=== PATIENT | female | born 1935 | race Caucasian/White ===

== ENCOUNTER 2021-08-22 13:27 | Inpatient (IN) | payer OTHER, MEDICAID, SELFPAY ==
[~2021-08-22] VITALS: Ht 165.1 cm; Wt 68.7 kg
[~2021-08-22 13:27] MED LIST: ACET650S53 PO; HYDR-4004 PO; LACT1.4C PO; OXYC40TA PO; POTA10TA74 PO; SIMV40TA1 PO; SULF-58 PO; VALS80TA2 PO; [UNRECOGNIZED DRUG - CODE] PO
[2021-08-22 13:38] VITALS: BP 186/91
[2021-08-22] MEDS ORDERED: METOCLOPRAMIDE 10 MG/2 ML INJ VIAL IVP ONE (14:55)
[2021-08-22] MEDS ORDERED: ONDANSETRON 4 MG ODT PO ONE (15:05)
--- NOTE | 2021-08-22 15:12 | NUR ---
COVID RAPID SWAB DONE.
[2021-08-22 16:01] LABS: EOSINOPHILS # (AUTO) 0.4 K/uL (0-0.4); EOSINOPHILS % (AUTO) 3.4 % (0.0-4.0); HEMATOCRIT 44.1 % (36-48); HEMOGLOBIN 14.7 g/dL (12.0-16.0); LYMPHOCYTES # (AUTO) 1.2 K/uL (2.5-16.5); LYMPHOCYTES % (AUTO) 9.4 % (20.5-51.1); MEAN CORPUSCULAR HEMOGLOBIN 30 pg (27-31); MEAN CORPUSCULAR HGB CONC 33 g/dL (33-37); MEAN CORPUSCULAR VOLUME 90.2 fL (80-94); MONOCYTES # (AUTO) 2.3 K/uL (0.8-1.0); MONOCYTES % (AUTO) 18.3 % (1.7-9.3); NEUTROPHILS # (AUTO) 8.5 K/uL (1.8-7.7); NEUTROPHILS % (AUTO) 68.9 % (42.2-75.2); PLATELET COUNT (AUTO) 322 K/uL (140-450); RED BLOOD CELL COUNT(AUTO) 4.89 MIL/uL (4.20-5.40); RED CELL DISTRIBUTION WIDTH 13.9 % (11.6-13.7); WHITE BLOOD COUNT (AUTO) 12.4 K/uL (4.8-10.8)
[2021-08-22 16:50] LABS: ANION GAP 10.3 (8-16); CARBON DIOXIDE 36.3 mmol/L (21-32); CHLORIDE 99 mmol/L (98-107); CREATININE 1.2 mg/dL (0.6-1.3); GLUCOSE 154 mg/dL (74-106); POTASSIUM 3.6 mmol/L (3.5-5.1); SODIUM SERUM 142 mmol/L (136-145); UREA NITROGEN, BLOOD 38 mg/dL (7-18)
[2021-08-22 16:56] LABS: BILIRUBIN,DIRECT 0.1 mg/dL (0.0-0.3); TOTAL BILIRUBIN 0.5 mg/dL (0.0-1.0)
[2021-08-22] MEDS ORDERED: NACL 0.9% 500 ML IV ONE (17:05)
--- NOTE | 2021-08-22 19:45 | NUR ---
RECEIVED IN BED 6 WITH C/O ABDOMINAL PAIN X 1 WEEK. [facility]. BETTING AGENCY COUNTER CLERK AT BEDSIDE WHO SAYS PT HAS BEEN VOMITING. PMH : SCHIZOPHRENIA NKDA
--- NOTE | 2021-08-22 21:00 | NUR ---
PT PULLED IV OUT. 20G ESTABLISHED RIGHT FOOT
[2021-08-22] MEDS ORDERED: ONDANSETRON 4 MG ODT ONE (21:06)
[2021-08-22] MEDS ORDERED: DEXT 5% / NACL 0.9% 500 ML IV ONE (21:25)
[2021-08-22] MEDS ORDERED: MORPHINE SULFATE 2 MG/ML SYR IVP PRN (22:15)
[2021-08-22] MEDS ORDERED: LORazepam 2 MG/ML VIAL IVP PRN (22:15)
[2021-08-22] MEDS: MORPHINE SULFATE 2 MG/ML SYR IVP PRN (23:34)
--- NOTE | 2021-08-23 00:40 | NUR ---
NGT INSERTED LEFT NARE. AUSCULTATION (+)
--- NOTE | 2021-08-23 01:24 | NUR ---
X-RAY AT BEDSIDE
--- NOTE | 2021-08-23 04:00 | NUR ---
NGT CONTINUES TO DRAIN LARGEAMOUNT BROWN COLORED DRAINAGE
--- NOTE | 2021-08-23 06:00 | NUR ---
RESTING QUIETLY. WARM BLANKETS GIVEN
--- NOTE | 2021-08-23 07:22 | NUR ---
MED REC UNOBTAINABLE AT THIS TIME. NO RECORD WITH PT WHO IS UNABLE TO GIVE INFORMATION AT THIS TIME
--- NOTE | 2021-08-23 08:30 | NUR ---
RECEIVED REPORT FROM CADY BOUDREAUX, ASSUMED CARE AT THIS TIME.
--- NOTE | 2021-08-23 08:35 | NUR ---
HOSPICE NURSE PRACTITIONER NURSE ENDORSED TO DAY NURSE PATIENT HAS PULLED OUT NG TUBE MULTIPLE TIMES. NG TUBE NOT IN PLACE WHEN I ASSUMED CARE OF PATIENT, PATIENT REFUSING TO ALLOW US TO REPLACE TUBE. ADMIT DOCTOR MADE AWARE.
--- NOTE | 2021-08-23 10:04 | NUR ---
PATIENT RESTING WITH EYES CLOSED, ON BEDSIDE EDGER HAND, WILL CONTINUE TO MONITOR.
[2021-08-23] MEDS ORDERED: ALBUTEROL 0.083% 2.5 MG/3 ML NEBU INH PRN (11:05)
[2021-08-23] MEDS ORDERED: ONDANSETRON 4 MG/2 ML VIAL IVP PRN (11:05)
--- NOTE | 2021-08-23 12:00 | NUR ---
DC PLANNING PATIENT IS AN 85-YEAR OLD FEMALE ADMITTED IN THE [facility]/ED ON 08/22/2021 DUE TO INTESTINAL OBSTRUCTION. SW MET PATIENT AT BEDSIDE SHE WAS AWAKE AND ALERT HOWEVER PATIENT IS A [facility] CLIENT WITH DEVELOPMENTAL DELAYS AND UNABLE TO EXPRESS HER NEEDS. [facility] CONTACTED [facility] IN [facility] AND SPOKE TO HUMAN RESOURCES OFFICER DAPHNEY SURESHCarine AT WHO WAS ABLE TO PROVIDE SOME PATIENT'S INFORMATION. PER DAPHNEY PATIENT WILL BE ABLE TO RETURN THE FACILITY IF PATIENT IS ABLE TO EAT AND FUNCTION INDEPENDENTLY WHEN SHE IS READY FOR DC FROM [facility]. PER DAPHNEY HE WILL BE THE PETROLEUM PRODUCTION ENGINEER AND THE ONE ARRANGING TRANSPORTATION BACK TO THE FACILITY FOR PATIENT. IRC /WORKER INFORMATION WAS ALSO PROVIDED LUKASZ FISHER AT [facility] THANKED MR. CORRALES FOR HIS INFORMATION AND WILL FOLLOW UP WITH STATUS WHEN PATIENT IS READY FOR DISCHARGE. [facility] CALLED IRC/CW LUKASZ FISHER AT TO DISCUSS PATIENT'S COLLATERAL INFORMATION PER LUKASZ PATIENT HAS NO FAMILY INVOLVEMENT ON HER CARE; PATIENT IS NOT CONSERVED AND ALL MEDICAL DECISIONS ARE MADE BY HER IRC/WORKER AND TEAM. PER IRC/CW LUKASZ FISHER PATIENT IS TO RETURN TO SAME FACILITY AFTER HER DISCHARGE IF LEVEL OF CARE IS THE SAME PREVIOUS TO ADMISSION TO [facility]. [facility] WILL FOLLOW UP NEEDED.
--- NOTE | 2021-08-23 13:30 | NUR ---
PATHOLOGY TECH AT BEDSIDE
[2021-08-23] MEDS ORDERED: PIPERACILLIN/TAZOBACTAM 4.5 GM VIAL IV ONE ×2 (13:41→22:32)
[2021-08-23] MEDS: PIPERACILLIN/TAZOBACTAM 4.5 GM in DEXTROSE 5% 100 ML IV SCH ×2 (13:49→22:45)
--- NOTE | 2021-08-23 16:08 | NUR ---
PATIENT HAS BEEN SCREENED AND CATEGORIZED HIGH NUTRITION RISK. PATIENT WILL BE SEEN WITHIN 1-2 DAYS OF ADMISSION. / ADIN LIGHT RD
--- NOTE | 2021-08-23 16:25 | NUR ---
PATIENT MOVED TO BED 13
--- NOTE | 2021-08-23 18:30 | NUR ---
PATIENT REPOSITIONED IN BED, GIVEN CLEAN GOWN AND SHEETS. PATIENT ON BEDSIDE SAWMILL TALLY CLERK, WILL CONTINUE TO MONITOR.
--- NOTE | 2021-08-23 19:39 | NUR ---
Pt report given to CADY SAN. Transfer of care at this time.
--- NOTE | 2021-08-23 20:10 | NUR ---
REPORT CALLED TO CADY JAIN
--- NOTE | 2021-08-23 20:20 | NUR ---
TRANSFERED TO ROOM 122B [facility]IA [facility]
--- NOTE | 2021-08-23 20:30 | NUR ---
PT WAS TRANSFER VIA GURNEY. PT IS NOT IN ANY DISTRESS. AAOX1 ON RA. PT IS NOT ABLE TO VERBALIZE. MUMBLES WHEN SPEAKING. CONFUSED AT TIMES. PT HAS 20 GAUGE ON RIGHT FOOT SALINE LOCK. HYPOACTIVE BOWEL SOUNDS. PT WAS EDUCATED SUPERVISOR BEAM DEPARTMENT LIGHT SYSTEM, ROOM ENVIRONMENT, AND STAFF. CALL LIGHT WITHIN REACH. ALL SAFETY MEASURES TAKEN. WILL CONTINUE TO MONITOR THE PT.
--- NOTE | 2021-08-24 01:20 | NUR ---
PT IS SLEEPING IN BED. PT IS NOT IN ANY DISTRESS. NO SIGNS OF SOB OR LABORED BREATHING NOTED. BED AT THE LOWEST. ALL SAFETY MEASURES TAKEN. WILL CONTINUE TO MONITOR THE PT.
[2021-08-24 04:00] VITALS: BP 137/69
[2021-08-24] MEDS ORDERED: PIPERACILLIN/TAZOBACTAM 4.5 GM VIAL IV ONE (04:10)
[2021-08-24] MEDS: PIPERACILLIN/TAZOBACTAM 4.5 GM in DEXTROSE 5% 100 ML IV SCH ×3 (04:33→20:56)
[2021-08-24 07:00] LABS: BASOPHILS % (AUTO) 0.2 % (0.0-2.0); EOSINOPHILS # (AUTO) 0.1 K/uL (0-0.4); EOSINOPHILS % (AUTO) 1.1 % (0.0-4.0); HEMATOCRIT 39.5 % (36-48); LYMPHOCYTES # (AUTO) 1.2 K/uL (2.5-16.5); LYMPHOCYTES % (AUTO) 11.1 % (20.5-51.1); MEAN CORPUSCULAR HEMOGLOBIN 30 pg (27-31); MEAN CORPUSCULAR HGB CONC 33 g/dL (33-37); MEAN CORPUSCULAR VOLUME 90.3 fL (80-94); MONOCYTES # (AUTO) 0.8 K/uL (0.8-1.0); NEUTROPHILS # (AUTO) 8.3 K/uL (1.8-7.7); NEUTROPHILS % (AUTO) 79.6 % (42.2-75.2); PLATELET COUNT (AUTO) 212 K/uL (140-450); RED BLOOD CELL COUNT(AUTO) 4.37 MIL/uL (4.20-5.40); WHITE BLOOD COUNT (AUTO) 10.4 K/uL (4.8-10.8)
--- NOTE | 2021-08-24 07:10 | NUR ---
RECEIVED REPORT FROM REGULATORY SCIENTIST NURSE FOR CONTINUITY OF CARE.
--- NOTE | 2021-08-24 07:20 | NUR ---
ENDORSED PT TO DAY SHIFT RN FOR CONTINUITY OF CARE. PT IS STABLE.
[2021-08-24 07:36] LABS: ANION GAP 9.6 (8-16); CARBON DIOXIDE 30.8 mmol/L (21-32); CHLORIDE 108 mmol/L (98-107); CREATININE 1.1 mg/dL (0.6-1.3); GLUCOSE 143 mg/dL (74-106); POTASSIUM 3.4 mmol/L (3.5-5.1); SODIUM SERUM 145 mmol/L (136-145); UREA NITROGEN, BLOOD 42 mg/dL (7-18)
[2021-08-24 08:00] VITALS: BP 141/68
--- NOTE | 2021-08-24 09:00 | NUR ---
DR. MAXWELL AT BED SIDE CHECK PT.
[2021-08-24] MEDS ORDERED: KCL 20 MEQ/WATER INJ PREMIX 100 ML IV SCH (11:00)
--- NOTE | 2021-08-24 11:00 | NUR ---
CALLED SQL BI DEVELOPER LUKASZ MOON FOR CONSENT BUT UNABLE TO CONTACT HER.
--- NOTE | 2021-08-24 11:15 | NUR ---
CALLED LUKASZ SERVOMECHANISM ASSEMBLER FOR PT FOR CONSENT.
--- NOTE | 2021-08-24 11:17 | NUR ---
DC PLANNING: THE PATIENT ADMITTED FROM [facility] WITH POSSIBLE INTESTINAL OBSTRUCTION. PATIENT IS [facility] CONNECTED, NO FAMILY, DECISIONS MADE BY THE [facility]. CONTACT IS LUKASZ, . [facility] SPOKE AT LENGTH WITH LUKASZ, ENDORSED FINDINGS OF PANCREATICODUODENAL MASS, SURGERY, GI AND HEM/ONC CONSULTS HAVE EVALUATED THE PATIENT. ADVANCED DEMENTIA, PATIENT UNABLE TO KEEP NGT IN PLACE, PLAN FOR PATIENT TO GO TO OR FOR DECOMPRESSIVE PEG TODAY. HEM/ONC MD DR AMBRIZ STATES THAT PATIENT IS NOT A CANDIDATE FOR BX OF EITHER INTESTINAL OR MEDIASTINAL MASS, PALLIATIVE MANAGEMENT INCLUDES THE DECOMPRESSIVE PEG AND SURGICAL JEJUNOSTOMY. LUKASZ WILL REVIEW THE CASE WITH HER RN TO DETERMINE PLAN OF TREATMENT AND PLACEMENT FOR THE PATIENT SHE CAN'T RETURN TO [facility] WITH A PEG. [facility] FAXED ALL CLINICALS TO LUKASZ AND WILL CONTINUE TO FOLLOW FOR NEEDS. Addendum: 08/30/21 at 1317 by Mago Moser CM DC PLANNING: [facility] RECEIVED A CALL FROM LUKASZ AT THE [facility]. SHE IS UNABLE TO FAX CONSENTS FOR PATIENT SURGERY, PICC LINE AND ANESTHESIA, WILL FAX TO [facility] TO TAKE TO [facility] FOR SIGNATURES BY . ALSO ASKING THAT MD SIGN THE POLST THAT IS BEING SENT. [facility] WILL FOLLOW. Addendum: 08/31/21 at 1114 by Mago Moser CM DC PLANNING: CONSENTS AND POLST EMAILED TO [facility] FROM LUKASZ AT THE [facility], GIVEN TO PRETTY [facility] DIRECTOR. CM WILL FOLLOW.
--- NOTE | 2021-08-24 11:26 | NUR ---
K REPLACED PER MD ORDER, PT EDUCATED UNABLE TO VERBALIZE UNDERSTANDING DUE TO CONDITION , PLAN OF CARE DISCUSSED WITH NURSE, BED IN LOWEST POSITION NON SLIP SOCKS ON , BED ALARM ON , ALLS SAFETY MEASURES ARE IN PLACE.
--- NOTE | 2021-08-24 11:30 | NUR ---
INFORM DR. FRANKLIN THAT WE DON'T HAVE CONSENT FOR PT AT THIS TIME. FAXED CONSENT AND DR. COLEY TO LUKASZ AT [phone] WAITING FOR REFAX.
--- NOTE | 2021-08-24 11:33 | NUR ---
SPOKE TO PT TOOLROOM CLERK LUKASZ MOON. SW STATED THEY NEED MD PROCEDURAL NOTES AND CONSENT FAXED, BUT ALSO NEED TO NURSES TO DECIDE TO CONSENT ON PROCEDURE. ITEMS FAXED TO FACILITY. DR. FRANKLIN NOTIFIED OF CURRENT STANDING.
--- NOTE | 2021-08-24 13:30 | NUR ---
RN GAVE IV ANTIBIOTIC ORDER PT STILL ON NPO WAITING FOR PT CONSENT FROM CRIMINOLOGY TEACHER LUKASZ FOR EGD. NO ADVERSE REACTION NOTED FOR ANTIBIOTIC
[2021-08-24 14:00] VITALS: BP 155/89
--- NOTE | 2021-08-24 15:06 | NUR ---
PT ASLEEP NO DISTRESS NOTED. MONITOR FREQUENTLY.
--- NOTE | 2021-08-24 15:44 | NUR ---
08/24/21 RD INITIAL ASSESSMENT COMPLETED PLEASE REFER TO NUTRITION ASSESSMENT UNDER CARE ACTIVITY FOR ESTIMATED NUTRITIONAL NEEDS. 1. WHEN/IF MEDICALLY APPROPRIATE, RECOMMEND VITAL AF 1.2 @ 50 ML/HR -FWF: 150 ML Q6H -START AT 10 ML/HR AND INCREASE BY 10 ML Q8H TOLERATED -WILL PROVIDE 1440 KCAL AND 90 GM PROTEIN, MEETING 85% KCAL AND 100% PROTEIN NEEDS 2. MONITOR GI SYMPTOMS 3. RD TO FOLLOW-UP 2-3 DAYS, HIGH RISK ADIN LIGHT RD
[2021-08-24 16:00] VITALS: BP 144/82
--- NOTE | 2021-08-24 16:18 | NUR ---
PT STILL HAVE NO CONSENT FOR EGD AND ON NPO AND NOT ON ANY IV HYDRATION INFORM DR. MAXWELL WAITING FOR RESPONSE.
--- NOTE | 2021-08-24 16:53 | NUR ---
DR. MAXWELL RESPONDED ORDER FOR IV HYDRATION OF 1/2 NORMAL SALINE AT 100CC /HOUR ORDER NOTED AND CARRIED OUT.
[2021-08-24] MEDS: NACL 0.45% 1,000 ML IV SCH (17:11)
--- NOTE | 2021-08-24 17:15 | NUR ---
PT ENDORSE TO GAS JOCKEY NURSE FOR CONTINUITY OF CARE.
--- NOTE | 2021-08-24 18:33 | NUR ---
PT ON BED ASLEEP ON IV HYDRATION OF 1/2 NORMAL SALINE AT 100CC/HOUR. IV SITE ON RIGHT FOOT ARMANI 20 NO S/S OF INFECTION. MONITOR FREQUENTLY GOOD SKIN CARE PROVIDED.
--- NOTE | 2021-08-24 19:30 | NUR ---
RECEIVED BEDSIDE REPORT FROM DAY SHIFT RN FOR CONTINUITY OF CARE. PT IS AWAKE IN BED ON RA. IVF RUNNING MD ORDER. PT IS NOT IN ANY DISTRESS. BREATHING RHYTHMIC AND SYMMETRICAL. CALL LIGHT WITHIN REACH. ALL SAFETY MEASURES TAKEN. WILL CONTINUE TO MONITOR THE PT.
[2021-08-24 20:00] VITALS: BP 142/69
--- NOTE | 2021-08-25 00:36 | NUR ---
PT IS SLEEPING IN BED. PT IS NOT IN ANY DISTRESS. CHEST RISE AND FALL. CALL LIGHT WITHIN REACH. ALL SAFETY MEASURES TAKEN. WILL CONTINUE TO MONITOR THE PT.
--- NOTE | 2021-08-25 02:31 | NUR ---
PT IS SLEEPING IN BED. IVF RUNNING MD ORDER. PT IS NOT IN ANY DISTRESS. CHEST RISE AND FALL. CALL LIGHT WITHIN REACH. ALL SAFETY MEASURES TAKEN. WILL CONTINUE TO MONITOR THE PT.
[2021-08-25 04:00] VITALS: BP 119/47
[2021-08-25] MEDS: NACL 0.45% 1,000 ML IV SCH ×3 (04:30→20:06)
[2021-08-25] MEDS: PIPERACILLIN/TAZOBACTAM 4.5 GM in DEXTROSE 5% 100 ML IV SCH ×3 (04:32→20:06)
--- NOTE | 2021-08-25 05:00 | NUR ---
PT IS AWAKE IN BED. PT IS NOT IN ANY DISTRESS. PT WAS CLEANED AND CHANGED. CALL LIGHT WITHIN REACH. ALL SAFETY MEASURES TAKEN. WILL CONTINUE TO MONITOR THE PT.
--- NOTE | 2021-08-25 07:23 | NUR ---
ENDORSED PT TO DAY SHIFT RN FOR CONTINUITY OF CARE. PT IS STABLE.
--- NOTE | 2021-08-25 07:24 | NUR ---
RECEIVED ENDORSEMENT FROM TIMING INSPECTOR NURSE FOR CONTINUITY OF CARE.
[2021-08-25 07:51] LABS: BASOPHILS % (AUTO) 0.3 % (0.0-2.0); EOSINOPHILS # (AUTO) 0.3 K/uL (0-0.4); EOSINOPHILS % (AUTO) 2.2 % (0.0-4.0); HEMATOCRIT 38.7 % (36-48); HEMOGLOBIN 12.9 g/dL (12.0-16.0); LYMPHOCYTES # (AUTO) 1.6 K/uL (2.5-16.5); LYMPHOCYTES % (AUTO) 13.4 % (20.5-51.1); MEAN CORPUSCULAR HEMOGLOBIN 30 pg (27-31); MEAN CORPUSCULAR HGB CONC 33 g/dL (33-37); MEAN CORPUSCULAR VOLUME 90.5 fL (80-94); MONOCYTES # (AUTO) 0.8 K/uL (0.8-1.0); MONOCYTES % (AUTO) 6.6 % (1.7-9.3); NEUTROPHILS % (AUTO) 77.5 % (42.2-75.2); PLATELET COUNT (AUTO) 202 K/uL (140-450); RED BLOOD CELL COUNT(AUTO) 4.28 MIL/uL (4.20-5.40); RED CELL DISTRIBUTION WIDTH 13.9 % (11.6-13.7); WHITE BLOOD COUNT (AUTO) 11.6 K/uL (4.8-10.8)
--- NOTE | 2021-08-25 07:54 | NUR ---
RECEIVED REPORT FROM LOLA HARRIS FOR CONTINUITY OF CARE.
[2021-08-25 08:00] VITALS: BP 156/74
--- NOTE | 2021-08-25 09:09 | NUR ---
PT. WITH LOW ZAC SCALE AT HIGH RISK, CONTINUE TO FOLLOW PRESSURE INJURY PREVENTION INTERVENTIONS. -TURN AND REPOSITION PATIENT Q 2H -INSPECT SKIN UNDER AND AROUND MEDICAL DEVICES. -ASSESS AND MONITOR SKIN CONDITION DURING POSITION CHANGE -OFFLOAD BILATERAL HEELS BY PLACING PILLOWS UNDER CALVES AT ALL TIMES, UNLESS OTHERWISE CONTRAINDICATED -APPLY HEEL PROTECTORS -PRESSURE REDISTRIBUTION SURFACE AND OFFLOADING SACRALCOCCYX -MANAGE MOISTURE, FRICTION AND SHEAR BY KEEP SKIN CLEAN AND DRY. -MANAGE FRICTION AND SHEAR BY USING LIFT SHEET TO REPOSITION PATIENT -HOB 30 DEGREE TOLERATE -PLEASE FOLLOW RD RECOMMENDATIONS PLEASE NOTIFIED WOUND CARE NURSE FOR ANY CHANGE OF SKIN CONDITION
--- NOTE | 2021-08-25 09:38 | NUR ---
PT IS GOING TO HAVE EGD SOON CONSENT OBTAINED BUT PT NO CODE STATUS INFORM DR. MAXWELL AND ORDER FOR DNR ORDER NOTED AND CARRIED OUT.
--- NOTE | 2021-08-25 10:54 | NUR ---
RECEIVED LAB RESULT OF POTASSIUM 2.[address] MAXWELL ORDER FOR K RIDER 40 MEQ. ORDER NOTED AND CARRIED OUT .
[2021-08-25] MEDS: KCL 20 MEQ/WATER INJ PREMIX 100 ML IV SCH ×2 (11:14→14:01)
[2021-08-25 13:06] LABS: CHLORIDE 108 mmol/L (98-107); POTASSIUM 2.8 mmol/L (3.5-5.1); SODIUM SERUM 145 mmol/L (136-145)
[2021-08-25 13:07] LABS: ANION GAP 9.2 (8-16); ASPARTATE AMINOTRANSFERASE 21 U/L (15-37); CARBON DIOXIDE 30.6 mmol/L (21-32); CREATININE 0.9 mg/dL (0.6-1.3); GLUCOSE 129 mg/dL (74-106); TOTAL BILIRUBIN 0.7 mg/dL (0.0-1.0); UREA NITROGEN, BLOOD 28 mg/dL (7-18)
[2021-08-25 13:08] LABS: ALBUMIN 2.8 g/dL (3.4-5.0)
--- NOTE | 2021-08-25 13:30 | NUR ---
PT IV ANTIBIOTIC GIVEN BY RN TOLERATED WELL NO ADVERSE REACTION NOTED. PT ASLEEP NO DISTRESS NOTED. ALL SAFETY MEASURE IN PLACE.
[2021-08-25 16:00] VITALS: BP 159/82
--- NOTE | 2021-08-25 16:30 | NUR ---
RECEIVED REPORT FROM LOLA LAZAR FOR CONTINUITY OF CARE. PT IS STABLE AT THIS TIME. ASLEEP IN SEMI FOWLERS POSITION. BREATHING IS UNLABORED. WILL CONTINUE TO MONITOR.
--- NOTE | 2021-08-25 19:07 | NUR ---
ENDORSED REPORT TO CHILDRENS CLUB ATTENDANT NURSE FOR CONTINUITY OF CARE. PT IS STABLE. PLAN OF CARE DISCUSSED.
--- NOTE | 2021-08-25 19:30 | NUR ---
RECEIVED BEDSIDE REPORT FROM MORNING SHIFT RN FOR CONTINUITY OF CARE. PT IS ON RA. PT IS AWAKE AND NOT IN ANY DISTRESS. BREATHING RHYTHMIC AND SYMMETRICAL. CALL LIGHT WITHIN REACH. ALL SAFETY MEASURES TAKEN. WILL CONTINUE TO MONITOR THE PT.
[2021-08-25 20:00] VITALS: BP 148/88
--- NOTE | 2021-08-25 20:10 | NUR ---
ALL DUE MEDS GIVEN. NO ADVERSE REACTION NOTED. WILL CONTINUE TO OBSERVE THE PT.
[2021-08-25] MEDS: LORazepam 2 MG/ML VIAL IVP PRN (23:15)
--- NOTE | 2021-08-26 00:15 | NUR ---
PT IS SLEEPING IN BED COMFORTABLY. PT IS NOT IN ANY DISTRESS. BREATHING RHYTHMIC AND SYMMETRICAL. BED AT THE LOWEST POSITION. HEAD OF BED RAISED. WILL CONTINUE TO MONITOR THE PT.
[2021-08-26 04:00] VITALS: BP 131/70
[2021-08-26] MEDS: PIPERACILLIN/TAZOBACTAM 4.5 GM in DEXTROSE 5% 100 ML IV SCH ×3 (04:46→23:40)
--- NOTE | 2021-08-26 07:30 | NUR ---
ENDORSED PT TO DAY SHIFT NURSE FOR CONTINUITY OF CARE. PT IS STABLE.
[2021-08-26 08:24] LABS: BASOPHILS % (AUTO) 0.1 % (0.0-2.0); EOSINOPHILS # (AUTO) 0.2 K/uL (0-0.4); EOSINOPHILS % (AUTO) 1.4 % (0.0-4.0); HEMATOCRIT 39.6 % (36-48); HEMOGLOBIN 13.3 g/dL (12.0-16.0); LYMPHOCYTES # (AUTO) 1.6 K/uL (2.5-16.5); LYMPHOCYTES % (AUTO) 12.4 % (20.5-51.1); MEAN CORPUSCULAR HEMOGLOBIN 30 pg (27-31); MEAN CORPUSCULAR HGB CONC 34 g/dL (33-37); MEAN CORPUSCULAR VOLUME 89.4 fL (80-94); MONOCYTES # (AUTO) 0.9 K/uL (0.8-1.0); MONOCYTES % (AUTO) 7.1 % (1.7-9.3); NEUTROPHILS # (AUTO) 10.5 K/uL (1.8-7.7); PLATELET COUNT (AUTO) 213 K/uL (140-450); RED BLOOD CELL COUNT(AUTO) 4.44 MIL/uL (4.20-5.40); RED CELL DISTRIBUTION WIDTH 13.6 % (11.6-13.7); WHITE BLOOD COUNT (AUTO) 13.3 K/uL (4.8-10.8)
--- NOTE | 2021-08-26 08:26 | NUR ---
RECEIVED BEDSIDE REPORT FROM ECONOMIC GEOGRAPHER RN FOR CONTINUITY OF CARE. PT IN BED. NOT IN ANY DISTRESS, BREATHING EVEN UNLABORED . IVF RUNNING MD ORDER ON RIGHT FOOT 20G , NOTED REDNESS ON THE SACRAL PATIENT IS IN ROOM AIR . CALL LIGHT WITHIN REACH. ALL SAFETY MEASURES TAKEN.
[2021-08-26 09:27] LABS: ANION GAP 15.7 (8-16); CARBON DIOXIDE 24.1 mmol/L (21-32); CHLORIDE 106 mmol/L (98-107); CREATININE 0.7 mg/dL (0.6-1.3); GLUCOSE 122 mg/dL (74-106); SODIUM SERUM 143 mmol/L (136-145); UREA NITROGEN, BLOOD 19 mg/dL (7-18)
[2021-08-26 09:30] LABS: POTASSIUM 2.8 mmol/L (3.5-5.1)
[2021-08-26] MEDS: NACL 0.45% 1,000 ML IV SCH ×2 (09:36→17:18)
--- NOTE | 2021-08-26 10:35 | NUR ---
PATIENT IN BED NO COMPLAINS POTASSIUM LOW, NO PRN ORDER INFORMED ATTENDING DR WAITING FOR ORDER , CALLS LIGHT WITHIN REACH ALL SAFETY MEASURES ON PLACE
[2021-08-26] MEDS: KCL 20 MEQ/WATER INJ PREMIX 200 ML IV SCH ×2 (11:00→12:19)
--- NOTE | 2021-08-26 11:22 | NUR ---
(08/26/21) RD FOLLOW UP COMPLETED PLEASE REFER TO NUTRITION PROGRESS NOTE UNDER CARE ACTIVITY FOR ESTIMATED NUTRITION NEEDS. RD RECOMMENDATIONS: 1. CONTINUE NPO MEDICALLY APPROPRIATE. 2. WHEN/IF MEDICALLY APPROPRIATE AND PT IS ABLE TO START TF, CONSIDER TF VITAL AF 1.2 @ 50 ML/HR WITH FWF: 150 ML Q6H -START AT 10 ML/HR AND INCREASE BY 10 ML Q8H TOLERATED -WILL PROVIDE 1440 KCAL AND 90 GM PROTEIN, MEETING 85% KCAL AND 100% PROTEIN NEEDS 3. MONITOR GI SYMPTOMS 4. IF UNABLE TO INITIATE NUTRITION VIA PO OR ENTERAL ROUTES, CONSIDER TPN/PPN. 4. RD TO FOLLOW-UP 2-3 DAYS, HIGH RISK MING GARVIN, MS, RDN
[2021-08-26 12:00] VITALS: BP 102/62
--- NOTE | 2021-08-26 12:32 | NUR ---
PATIENT IN BED NO COMPLAINS NO SOD NOTED , CALLS LIGHT WITHUN REACH ALL SAFETY MEASURES ON PLACE
--- NOTE | 2021-08-26 15:03 | NUR ---
PATIENT IN BED NO COMPLAINS NO SOD NOTED , CALLS LIGHT WITHUN REACH ALL SAFETY MEASURES ON PLACE
--- NOTE | 2021-08-26 17:20 | NUR ---
PATIENT IN BED NO COMPLAINS NO SOD NOTED , CALLS LIGHT WITHUN REACH ALL SAFETY MEASURES ON PLACE
[2021-08-26 19:40] LABS: CARBON DIOXIDE 26.4 mmol/L (21-32); CHLORIDE 108 mmol/L (98-107); CREATININE 0.7 mg/dL (0.6-1.3); GLUCOSE 112 mg/dL (74-106); POTASSIUM 3.4 mmol/L (3.5-5.1); SODIUM SERUM 145 mmol/L (136-145); UREA NITROGEN, BLOOD 22 mg/dL (7-18)
--- NOTE | 2021-08-26 19:55 | NUR ---
FULL BEDSIDE REPORT GIVEN TO TRIAL MGR NURSE
[2021-08-26 20:00] VITALS: BP 152/83
--- NOTE | 2021-08-26 20:05 | NUR ---
PT IS IN BED W/STABLE CONDITION.RESP.UNLABORED IN RA.VS STABLE.SL PATENT IN LT FOOT.CALL LIGHT IN REACH.WILL CINT.MONITORING.
[2021-08-26] MEDS: POTASSIUM CHLORIDE 10 MEQ TABER PO SCH (23:04)
--- NOTE | 2021-08-27 00:15 | NUR ---
TOOK OUT HER IV LINE.REINSERTED IN LT WRIST.NO DISTRESS NOTED NOW.SLEEPING.
[2021-08-27 04:00] VITALS: BP 140/80
--- NOTE | 2021-08-27 04:04 | NUR ---
SHE TOOK OUT HER IV LINE AGAIN.WILL REINSERT AGAIN.VS STABLE.
[2021-08-27] MEDS: NACL 0.45% 1,000 ML IV SCH ×2 (04:50→14:50)
[2021-08-27] MEDS: PIPERACILLIN/TAZOBACTAM 4.5 GM in DEXTROSE 5% 100 ML IV SCH ×3 (05:45→21:32)
--- NOTE | 2021-08-27 07:47 | NUR ---
REINSERTED IV LINE.AFTER JEROMEN FINISHED SHE PULLED IT OUT AGAIN.I TRIED X2 I COULDN'T.ENDORSED TO AM RN.SLEEPING NOW.
--- NOTE | 2021-08-27 07:50 | NUR ---
RECEIVED PT FROM SUGAR REFINERY SUPERVISOR RN, PT IS AWAKE AND LYING SUPINE ON THE BED WITH SIDE RAILS UP AND CALL LIGHT WITHIN REACH, NO IV NOTED, ON RA, CONFUSED, FALL AND SAFETY PRECAUTION ENFORCED, AND NO SIGN OF DISTRESS NOTED. WILL CONTINUE TO MONITOR PT.
[2021-08-27 08:00] VITALS: BP 155/84
[2021-08-27 08:06] LABS: BASOPHILS % (AUTO) 0.3 % (0.0-2.0); EOSINOPHILS # (AUTO) 0.2 K/uL (0-0.4); HEMATOCRIT 41.8 % (36-48); LYMPHOCYTES # (AUTO) 1.8 K/uL (2.5-16.5); LYMPHOCYTES % (AUTO) 15.2 % (20.5-51.1); MEAN CORPUSCULAR HEMOGLOBIN 30 pg (27-31); MEAN CORPUSCULAR HGB CONC 33 g/dL (33-37); MEAN CORPUSCULAR VOLUME 89.7 fL (80-94); MONOCYTES # (AUTO) 0.9 K/uL (0.8-1.0); MONOCYTES % (AUTO) 7.6 % (1.7-9.3); NEUTROPHILS # (AUTO) 8.8 K/uL (1.8-7.7); NEUTROPHILS % (AUTO) 74.9 % (42.2-75.2); PLATELET COUNT (AUTO) 201 K/uL (140-450); RED BLOOD CELL COUNT(AUTO) 4.66 MIL/uL (4.20-5.40); RED CELL DISTRIBUTION WIDTH 13.7 % (11.6-13.7); WHITE BLOOD COUNT (AUTO) 11.7 K/uL (4.8-10.8)
[2021-08-27 08:32] LABS: CHLORIDE 103 mmol/L (98-107); CREATININE 0.7 mg/dL (0.6-1.3); GLUCOSE 101 mg/dL (74-106); SODIUM SERUM 140 mmol/L (136-145)
[2021-08-27] MEDS: POTASSIUM CHLORIDE 10 MEQ TABER PO SCH (09:00)
[2021-08-27 10:16] LABS: UREA NITROGEN, BLOOD 20 mg/dL (7-18)
--- NOTE | 2021-08-27 11:38 | NUR ---
SPOKE TO DERIK SANCHEZ NOW, CN FROM [facility] AND INFORMED THAT PT NEEDS A SURGERY BUT FILIBERTO MORE SAID THAT THE CONSENT FOR SURGERY NEEDS TO BE OBTAIN FROM THE [facility] DESIGNEE PERSON.
[2021-08-27 16:00] VITALS: BP 159/82
--- NOTE | 2021-08-27 17:15 | NUR ---
DR. ANIBAL MAXWELL MADE A VERBAL ORDER TO INSERT MIDLINE TO PT .
--- NOTE | 2021-08-27 19:20 | NUR ---
CAROL. REPORT FROM CADY BENNETT FOR CONTINUITY OF CARE. PATIENT RESTING IN BED, AWAKE, A/OX1. RESPIRATION EVEN AND UNLABORED. IV OF 0.45% NS INFUSING AT 100 ML/HR, RIGHT FOREARM G24. INCONTINENT, FALL RISK. BED IN THE LOWEST POSITION, SIDE RAILS UP, CALL LIGHT IN REACH. BED ON ALARM. REORIENTED TO HOSPITAL SETTING, NEEDS REINFORCEMENT. NO APPEARANCE OF PAIN NOTED, FLACC -0.
--- NOTE | 2021-08-27 21:20 | NUR ---
PULLED OUT IV LINE, NEW IV LINE INSERTED BY BEAN SPROUT GROWER FAISAL AT THE RIGHT WRIST G22.
--- NOTE | 2021-08-27 21:58 | NUR ---
PT PRESENTS LAYING IN BED WITH NO SIGNS OF RESPIRATORY DISTRESS SATING 95% ON RA. WILL CONTINUE TO MONITOR.
--- NOTE | 2021-08-27 22:35 | NUR ---
CHECKED PATIENT, PULLED OUT AGAIN HER IV LINE EVEN THOUGH IT IS COVERED WITH KERLIX ADN ARM HIDDEN UNDER THE BLANKET.
--- NOTE | 2021-08-27 23:30 | NUR ---
AT THE DOOR OF HER ROOM, TRYING TO GO OUT, CONFUSED. ASSISTED BACK TO BED AND MADE COMFORTABLE WITH BLANKETS. ADVISED TO GO TO SLEEP.
[2021-08-28] MEDS: NACL 0.45% 1,000 ML IV SCH (00:50)
--- NOTE | 2021-08-28 01:30 | NUR ---
SLEEPING COMFORTABLY IN BED, RESPIRATION EVEN AND UNLABORED. SAFETY MEASURES ENFORCED.
--- NOTE | 2021-08-28 02:30 | NUR ---
SLEEPING COMFORTABLY IN BED. RESPIRATION EVEN AND UNLABORED.
[2021-08-28 04:00] VITALS: BP 160/82
--- NOTE | 2021-08-28 04:30 | NUR ---
NEW IV LINE INSERTED BY BILINGUAL SPEECH THERAPIST FAISAL AT THE RIGHT FOREARM G22.
--- NOTE | 2021-08-28 06:30 | NUR ---
PULLED OUT IV LINE AGAIN AND AMBULATED TO THE DOORWAY. REORIENTED TO HOSPITAL SETTING AND ASSISTED BACK TO THE BED.
[2021-08-28 06:31] LABS: BASOPHILS % (AUTO) 0.4 % (0.0-2.0); EOSINOPHILS # (AUTO) 0.2 K/uL (0-0.4); EOSINOPHILS % (AUTO) 2.4 % (0.0-4.0); HEMATOCRIT 38.8 % (36-48); HEMOGLOBIN 13.1 g/dL (12.0-16.0); LYMPHOCYTES # (AUTO) 1.2 K/uL (2.5-16.5); LYMPHOCYTES % (AUTO) 11.7 % (20.5-51.1); MEAN CORPUSCULAR HEMOGLOBIN 30 pg (27-31); MEAN CORPUSCULAR HGB CONC 34 g/dL (33-37); MEAN CORPUSCULAR VOLUME 89.1 fL (80-94); MONOCYTES # (AUTO) 0.8 K/uL (0.8-1.0); MONOCYTES % (AUTO) 7.5 % (1.7-9.3); NEUTROPHILS # (AUTO) 7.9 K/uL (1.8-7.7); PLATELET COUNT (AUTO) 204 K/uL (140-450); RED BLOOD CELL COUNT(AUTO) 4.35 MIL/uL (4.20-5.40); RED CELL DISTRIBUTION WIDTH 13.8 % (11.6-13.7); WHITE BLOOD COUNT (AUTO) 10.1 K/uL (4.8-10.8)
--- NOTE | 2021-08-28 06:57 | NUR ---
RESTING IN BED, RESPIRATION EVEN AND UNLABORED. SAFETY MAINTAINED. PULLED OUT TWICE IV LINES. SAFETY MAINTAINED, WILL ENDORSE TO AM SHIFT NURSE FOR CONTINUITY OF CARE.
[2021-08-28 06:59] LABS: ALBUMIN 2.8 g/dL (3.4-5.0); ANION GAP 15.1 (8-16); ASPARTATE AMINOTRANSFERASE 23 U/L (15-37); CARBON DIOXIDE 26.4 mmol/L (21-32); CHLORIDE 104 mmol/L (98-107); CREATININE 0.6 mg/dL (0.6-1.3); GLUCOSE 113 mg/dL (74-106); SODIUM SERUM 143 mmol/L (136-145); TOTAL BILIRUBIN 0.8 mg/dL (0.0-1.0); UREA NITROGEN, BLOOD 14 mg/dL (7-18)
[2021-08-28 07:04] LABS: POTASSIUM 2.5 mmol/L (3.5-5.1)
--- NOTE | 2021-08-28 07:32 | NUR ---
REPORT RECEIVED FROM PM SHIFT SEWER CONNECTOR FOR CONTINUITY OF CARE. PT. ALERT,CONFUSED. NO RESP. DISTRESS NOTED ON ROOM AIR. PT. HAS NO IV ACCESS. . HAS MIDLINE ORDER. WILL FOLLOW UP WITH PICC LINE NURSE. ALSO PT. IS SCHEDULED FOR PROCEDURE JEJUNOSTOMY FEEDING TUBE PLACEMENT. NO CONSENT SIGNED YET FROM CONSERVATOR PER REPORT FROM PM SHIFT SEWER CONNECTOR. WILL FOLLOW UP . ALSO PT'S POTASSIUM LEVEL IS CRITICAL LOW. 2.6. PM FT SEWER CONNECTOR NOTIFIED TO MD AND OBTAINED ORDER IV K RIDER AND PO POTASSIUM . TO FOLLOW UP. PER PM SHIF SEWER CONNECTOR GABBIE ENDORSED TO ME THAT SHE SPOKE WITH PHARMACIST . AND PHARMACY WILL NOT DELIVER IV K RIDER UNTIL PT. HAS NO IV ACCESSES. CAN GIVE PO POTASSIUM ORDER. WILL CARRYOUT ORDER. AND CONTINUE TO MONITOR THE PT.
[2021-08-28] MEDS ORDERED: KCL 20 MEQ/WATER INJ PREMIX 200 ML IV ONE ×2 (07:35)
[2021-08-28] MEDS: POTASSIUM CHLORIDE 10 MEQ TABER PO SCH ×2 (10:13→13:19)
--- NOTE | 2021-08-28 11:30 | NUR ---
MEDS WAS ADMINISTERED. PT.TOLERATED WELL . NOT IN DISTRESS NOTED. ALL SAFETY MEASURES IN PLACED. WILL CONTINUE TO MONITOR THE PT.
--- NOTE | 2021-08-28 11:40 | NUR ---
RECEIVED CALL FROM [facility]. SPOKE WITH [facility] AND UPDATED STATUS.
--- NOTE | 2021-08-28 13:49 | NUR ---
FAXED ALL PAPERS FOR CONSENT FOR JEJUNOSTOMY FEEDING TUBE PLACEMENT.,MIDLINE PLACEMENT, ANESTHESIA FORM FOR PROCEDURE TO LUKASZ MERRITT. AWAITING FOR FAX BACK WITH CONSENT SIGN. DR. MAXWELL AT THE UNIT , SIGNED THE CONSENT FOR MIDLINE. ALSO NOTIFIED HIM THAT COULDN'T GIVE IV K RIDER. SINCE PT. HAS NO IV ACCESS. AND UNABLE TO INSERT ONE. SAID OK. WAITING FOR MIDLINE PLACEMENT.
[2021-08-28 16:00] VITALS: BP 89/99
--- NOTE | 2021-08-28 16:00 | NUR ---
PT. LYING IN THE BED. WITH NO S/S OF DISTRESS NOTED. ALL SAFETY MEASURES IN PLACED. WILL CONTINUE TO MONITOR THE PT.
--- NOTE | 2021-08-28 18:50 | NUR ---
EARLIER WAS FAXED PAPER FOR CONSENT TO THE CONSERVATOR. STILL WAITING FOR FAXED BACK WITH CONSENT SIGN. WILL ENDORSE TO PM SHIFT NURSE TO FOLLOW UP.. PT. STABLE . ON ROOM AIR. BREATHINGS NORMAL AND UNLABORED. WILL CONTNUE TO MONITOR THE PT.
--- NOTE | 2021-08-28 19:23 | NUR ---
ENDORSED REPORT TO PM SHIFT RN FOR CONTINUITY OF CARE. PT. STABLE.
--- NOTE | 2021-08-28 19:24 | NUR ---
RECEIVED REPORT FROM MORNING SHIFT FOR CONTINUITY OF CARE. PATIENT IS STABLE IN BED. A&OX1 WITH CONFUSION. RESPONDS TO NAME AND REQUIRES REDIRECTION. DENIES PAIN. ON ROOM AIR WITH NO APPARENT S/SX OF ACUTE DISTRESS. RESPIRATIONS EVEN AND UNLABORED. NO IV SITE. PATIENT IS INCONTINENT AND UTILIZES PULL UP. PLAN OF CARE AND WHITE COMMUNICATION BOARD UPDATED. BED IN LOW/LOCKED POSITION. CALL LIGHT WITHIN REACH. WILL CONTINUE TO MONITOR.
--- NOTE | 2021-08-28 20:01 | NUR ---
PT PRESENTS LAYING IN BED WITH NO SIGNS OF RESPIRATORY DISTRESS SATING 94% ON RA. WILL CONTINUE TO MONITOR.
[2021-08-28] MEDS: PIPERACILLIN/TAZOBACTAM 3.375 GM in DEXTROSE 5% 50 ML IV SCH (21:00)
--- NOTE | 2021-08-28 21:20 | NUR ---
PATIENT IS STABLE AND RESTING IN BED. CHEST IS RISING AND FALLING SYMMETRICALLY. RESPIRATIONS EVEN AND UNLABORED WITH NO APPARENT S/SX OF ACUTE DISTRESS. WHITE COMMUNICATION BOARD UPDATED. ALL SAFETY MEASURES IN PLACE. CALL LIGHT WITHIN REACH. WILL CONTINUE TO MONITOR.
--- NOTE | 2021-08-28 22:30 | NUR ---
DR. FRANKLIN CALLED TO INQUIRE ABOUT OBTAINING CONSENT FROM SHAINA LAL. ENDORSED TO DR. FRANKLIN THAT SHAINA WAS ATTEMPTED TO CALL AT 2130 BUT SHE DID NOT ANSWER HER PHONE. DR. FRANKLIN STATES TO KEEP PATIENT NPO AFTER MIDNIGHT.
--- NOTE | 2021-08-28 23:08 | NUR ---
SPOKE WITH DR. FRANKLIN REGARDING CHEM ORDER. WILL UPDATE DR. FRANKLIN WHEN RESULTS OF POTASSIUM ARE IN.
--- NOTE | 2021-08-28 23:20 | NUR ---
PATIENT IS STABLE AND AWAKE. WHITING MACHINE OPERATOR WITHDRAW BLOOD PER MD ORDER. DENIES PAIN. RESPIRATIONS EVEN AND UNLABORED WITH NO APPARENT S/SX OF ACUTE DISTRESS. WHITE COMMUNICATION BOARD UPDATED. ALL SAFETY MEASURES IN PLACE. CALL LIGHT WITHIN REACH. WILL CONTINUE TO MONITOR.
[2021-08-28 23:52] LABS: ANION GAP 16.4 (8-16); CARBON DIOXIDE 24.3 mmol/L (21-32); CHLORIDE 107 mmol/L (98-107); CREATININE 0.5 mg/dL (0.6-1.3); GLUCOSE 99 mg/dL (74-106); POTASSIUM 3.7 mmol/L (3.5-5.1); SODIUM SERUM 144 mmol/L (136-145); UREA NITROGEN, BLOOD 13 mg/dL (7-18)
[2021-08-29] MEDS: NACL 0.45% 1,000 ML IV SCH
--- NOTE | 2021-08-29 01:20 | NUR ---
CHECKED PATIENT. STABLE AND ASLEEP. CHEST IS RISING AND FALLING SYMMETRICALLY. RESPIRATIONS EVEN AND UNLABORED WITH NO APPARENT S/SX OF ACUTE DISTRESS. WHITE COMMUNICATION BOARD UPDATED. ALL SAFETY MEASURES IN PLACE. CALL LIGHT WITHIN REACH. WILL CONTINUE TO MONITOR.
--- NOTE | 2021-08-29 03:20 | NUR ---
ROUNDED ON PATIENT. STABLE AND ASLEEP. CHEST IS RISING AND FALLING SYMMETRICALLY. RESPIRATIONS EVEN AND UNLABORED WITH NO APPARENT S/SX OF ACUTE DISTRESS. WHITE COMMUNICATION BOARD UPDATED. ALL SAFETY MEASURES IN PLACE. CALL LIGHT WITHIN REACH. WILL CONTINUE TO MONITOR.
[2021-08-29 04:00] VITALS: BP 145/88
[2021-08-29] MEDS: PIPERACILLIN/TAZOBACTAM 3.375 GM in DEXTROSE 5% 50 ML IV SCH ×3 (05:00→21:00)
--- NOTE | 2021-08-29 05:20 | NUR ---
CLEANED AND CHANGED PATIENT. TOLERATED WELL. DENIES PAIN. RESPIRATIONS EVEN AND UNLABORED WITH NO APPARENT S/SX OF ACUTE DISTRESS. ALL NEEDS MET. WHITE COMMUNICATION BOARD UPDATED. ALL SAFETY MEASURES IN PLACE. CALL LIGHT WITHIN REACH. WILL CONTINUE TO MONITOR.
[2021-08-29 06:32] LABS: BASOPHILS % (AUTO) 0.3 % (0.0-2.0); EOSINOPHILS # (AUTO) 0.2 K/uL (0-0.4); HEMATOCRIT 38.8 % (36-48); HEMOGLOBIN 13.3 g/dL (12.0-16.0); LYMPHOCYTES # (AUTO) 1.5 K/uL (2.5-16.5); LYMPHOCYTES % (AUTO) 13.9 % (20.5-51.1); MEAN CORPUSCULAR HEMOGLOBIN 30 pg (27-31); MEAN CORPUSCULAR HGB CONC 34 g/dL (33-37); MEAN CORPUSCULAR VOLUME 88.8 fL (80-94); MONOCYTES # (AUTO) 0.9 K/uL (0.8-1.0); MONOCYTES % (AUTO) 8.3 % (1.7-9.3); NEUTROPHILS % (AUTO) 75.5 % (42.2-75.2); PLATELET COUNT (AUTO) 202 K/uL (140-450); RED BLOOD CELL COUNT(AUTO) 4.37 MIL/uL (4.20-5.40); RED CELL DISTRIBUTION WIDTH 13.6 % (11.6-13.7); WHITE BLOOD COUNT (AUTO) 10.6 K/uL (4.8-10.8)
--- NOTE | 2021-08-29 07:25 | NUR ---
RECEIVED ENDORSEMENT FROM BINGO FLOATER NURSE FOR CONTINUITY OF CARE.
--- NOTE | 2021-08-29 07:25 | NUR ---
ENDORSED PATIENT TO MORNING SHIFT NURSE FOR CONTINUITY OF CARE. PATIENT IS STABLE.
--- NOTE | 2021-08-29 08:00 | NUR ---
Patient's Plan of Care was discussed and reviewed with SOLDER MAKING SUPERVISOR: LOLA BOWLES
--- NOTE | 2021-08-29 10:00 | NUR ---
PT ALERT WITH GLUED WOOD TESTER AT BED SIDE PT. SITE ON CHAIR ALERT NOT ON ANY DISCOMFORT.
[2021-08-29 10:20] LABS: ANION GAP 17.9 (8-16); CARBON DIOXIDE 22.5 mmol/L (21-32); CHLORIDE 108 mmol/L (98-107); CREATININE 0.5 mg/dL (0.6-1.3); GLUCOSE 91 mg/dL (74-106); POTASSIUM 3.4 mmol/L (3.5-5.1); SODIUM SERUM 145 mmol/L (136-145); UREA NITROGEN, BLOOD 14 mg/dL (7-18)
--- NOTE | 2021-08-29 12:00 | NUR ---
PT BACK ON BED RESTING WITH CALL LIGHT WITH IN EASY REACH.
--- NOTE | 2021-08-29 13:00 | NUR ---
IV ANTIBIOTIC GIVEN BY RN NO ADVERSE REACTION NOTED.
--- NOTE | 2021-08-29 14:20 | NUR ---
08/29/21 RD FOLLOW UP COMPLETED PLEASE REFER TO NUTRITION ASSESSMENT UNDER CARE ACTIVITY FOR ESTIMATED NUTRITIONAL NEEDS. 1. CONTINUE NPO MEDICALLY APPROPRIATE 2. CONSIDER TPN/PPN PT IS NPO FOR 7 DAYS 3. WHEN/IF MEDICALLY APPROPRIATE AND PT IS ABLE TO START TF, CONSIDER TF VITAL AF 1.2 @ 50 ML/HR WITH FWF 150 ML Q6H -START AT 10 ML/HR AND INCREASE BY 10 ML Q8H TOLERATED -WILL PROVIDE 1440 KCAL AND 90 GM PROTEIN, MEETING 85% KCAL AND 100% PROTEIN NEEDS 4. MONITOR GI SYMPTOMS 5. RD TO FOLLOW-UP 2-3 DAYS, HIGH RISK ADIN LIGHT RD
--- NOTE | 2021-08-29 17:00 | NUR ---
PT CHANGE DIAPER BY HIDE DYER AND NOTED PT PULLED HER IV LINE.
[2021-08-29] MEDS ORDERED: POTASSIUM CHL 40 MEQ/ D5-1/2NS 1,000 ML IV SCH ×2 (17:25→18:44)
--- NOTE | 2021-08-29 18:45 | NUR ---
RN TRIED TO PUT IV LINE BUT UNSUCCESSFUL. NOT ON ANY DISTRESS.
--- NOTE | 2021-08-29 19:25 | NUR ---
PT ON BED ASLEEP ENDORSE TO CHEMISTRY ACCOUNT MANAGER NURSE FOR CONTINUITY OF CARE.
[2021-08-29] MEDS: MORPHINE SULFATE 2 MG/ML SYR IVP PRN (21:57)
[2021-08-29 22:47] VITALS: BP 149/79
[2021-08-29] MEDS: LORazepam 2 MG/ML VIAL IVP PRN (23:51)
--- NOTE | 2021-08-29 23:52 | NUR ---
Iv started RAC24 G
--- NOTE | 2021-08-29 23:52 | NUR ---
the pateint complained of pain morphine was given ivp
[2021-08-30 05:19] VITALS: BP 141/76
[2021-08-30 06:11] LABS: BASOPHILS % (AUTO) 0.5 % (0.0-2.0); EOSINOPHILS # (AUTO) 0.3 K/uL (0-0.4); EOSINOPHILS % (AUTO) 2.8 % (0.0-4.0); HEMATOCRIT 37.8 % (36-48); HEMOGLOBIN 12.8 g/dL (12.0-16.0); LYMPHOCYTES # (AUTO) 1.9 K/uL (2.5-16.5); LYMPHOCYTES % (AUTO) 17.7 % (20.5-51.1); MEAN CORPUSCULAR HEMOGLOBIN 30 pg (27-31); MEAN CORPUSCULAR HGB CONC 34 g/dL (33-37); MEAN CORPUSCULAR VOLUME 88.6 fL (80-94); MONOCYTES # (AUTO) 0.9 K/uL (0.8-1.0); NEUTROPHILS # (AUTO) 7.7 K/uL (1.8-7.7); PLATELET COUNT (AUTO) 209 K/uL (140-450); RED BLOOD CELL COUNT(AUTO) 4.27 MIL/uL (4.20-5.40); RED CELL DISTRIBUTION WIDTH 13.6 % (11.6-13.7); WHITE BLOOD COUNT (AUTO) 10.8 K/uL (4.8-10.8)
[2021-08-30 06:41] LABS: ANION GAP 13.9 (8-16); CARBON DIOXIDE 26.5 mmol/L (21-32); CHLORIDE 110 mmol/L (98-107); CREATININE 0.6 mg/dL (0.6-1.3); GLUCOSE 102 mg/dL (74-106); POTASSIUM 3.4 mmol/L (3.5-5.1); SODIUM SERUM 147 mmol/L (136-145); UREA NITROGEN, BLOOD 22 mg/dL (7-18)
--- NOTE | 2021-08-30 06:54 | NUR ---
the patient is confused and pulled her iv and refuse to get a new one.
--- NOTE | 2021-08-30 07:28 | NUR ---
REPORT RECEIVED FROM PM SHIFT CADY BISWAS FOR CONTINUITY OF CARE. PT. SLEEPING COMFORTABLY IN THE BED. BREATHINGS EVEN AND UNLABORED. SAFETY MEASURES IN PLACED. BED IN LOW POSITION. . PT. HAS NO IV ACCESS PER ENDOIRSEMENT. PT. PULLED OUT IV. HAS ORDER FOR MIDLINE PLACEMENT. BUT COULDN'T GET THE CONSENT. PT. HAS NO FAMILY AND CONSERVATOR DIDN'T FAXED BACK THE PAPER WITH CONSENT. ALSO SENT PAPER FOR PROCEDURE AND ANESTHESIA FORM. TO SIGN THE CONSENT. SENT IT MULTIPLE TIMES. PER ENDORSEMENT. WILL FOLLOW UP.
--- NOTE | 2021-08-30 07:55 | NUR ---
CALLED AND NOTIFIED RE. PT. HAS NOT CONSENT SIGNED BY CONSERVATOR.
[2021-08-30 08:00] VITALS: BP 135/69
--- NOTE | 2021-08-30 10:00 | NUR ---
PT. SLEEPING IN THE BED. WITH NO ACUTE DISTRESS NOTED. ALL SAFETY MEASURES IN PLACED. WILL CONTINUE TO MONITOR THE PT.
--- NOTE | 2021-08-30 10:30 | NUR ---
RECEIVED CALL FROM CONSERVBOB LAL. SAID THAT SHE SIGNED THE CONSENT FORM AND FAXED BACK. . CHECKED FAXED BACK CONSENT FORM . BUT WAS NOT PRINTED GOOD AND NOT VISIBLE SIGNED. SO CALL HER BACK AND NOTIFIED THE CONCERN. AND REFAXED AGAIN CONSENT FORM TO SIGN AGAIN.
--- NOTE | 2021-08-30 13:29 | NUR ---
PATIENT COMFORTABLY SLEEPING IN THE BED. BREATHINGS EVEN AND UNLABORED ON ROOM AIR. ALL SAFETY MEASURES IN PLACED. WILL CONTINUE TO MONITOR THE PT.
--- NOTE | 2021-08-30 15:00 | NUR ---
PT. SLEEPING IN THE BED. NO S/S OF ACUTE DISTRESS NOTED. BED IN LOW POSITIN. ASAFETY MEASURES IN PLACED.
[2021-08-30 16:00] VITALS: BP 145/84
--- NOTE | 2021-08-30 18:00 | NUR ---
DR. MAXWELL WAS IN THE HOUSE. MADE AWARE RE. PT. HAS NO IV ACCESS. AND MIDLINE CONSENT IS NOT SIGNED BY CONSERVATOR. SAID IT'S NECESSITY TO HAVE IV ACCESS. SAID I WILL DOCUMENT FOR NECESSITY FOR MIDLINE . NOTIFIED POLLS OR SURVEYS INTERVIEWER.. POLLS OR SURVEYS INTERVIEWER SAID. OK WILL NOTIFY PICC LINE.WILL ENDORSE TO PM SHIFT RN TO FOLLOW UP.
--- NOTE | 2021-08-30 19:30 | NUR ---
REPORT GIVEN TO PM SHIFT RN FOR CONTINUITY OF CARE. PT. STABLE
--- NOTE | 2021-08-30 19:31 | NUR ---
RECEIVED PATIENT REPORT FROM AM SHIFT NURSE FOR CONTINUITY OF CARE. PATIENT IN BED RESTING COMFORTABLY. BREATHINGS EVEN AND UNLABORED. BED IN LOW POSITION.. AM SHIFT NURSE ENDORSED THAT PATIENT HAS NO IV ACCESS PER ENDORSEMENT. PATIENT PULLING OUT HER IV. HAS ORDER FOR MIDLINE PLACEMENT BUT CANNOT OBTAIN CONSENT. WILL FOLLOW-UP WITH CONSERVATOR. ALL SAFETY MEASURES IN PLACE. CALL LIGHT WITHIN REACH. WILL CONTINUE WITH CURRENT PLAN OF CARE.
--- NOTE | 2021-08-30 20:00 | NUR ---
Patient's Plan of Care was discussed and reviewed with FLYING II INSTRUCTOR: RADHA NIEVES
--- NOTE | 2021-08-30 20:49 | NUR ---
PATIENT FOUND SITTING IN THE CHAIR INSIDE HER ROOM. BODY ASSESSMENT DONE. NO INJURY NOTED. PATIENT TRANSFER TO BED WITH THE TRANSFER BELT. BED IN LOW POSITION. ALL SAFETY MEASURES IN PLACE. CALL LIGHT WITHIN REACH. WILL CONTINUE TO MONITOR.
--- NOTE | 2021-08-30 21:30 | NUR ---
PT WAS SEEN AND ASSESSED. PT WAS ON ROOM AIR WITH SPO2 OF 92%. PT IS IN NO RESPIRATORY DISTRESS AT THIS TIME. PRN TREATMENT NOT INDICATED AT THIS TIME. WILL CONTINUE TO MONITOR.
--- NOTE | 2021-08-30 22:05 | NUR ---
CALLED LUKASZ MERRITT FOR CONSENT FOLLOW-UP BUT NOBODY ANSWERING THE PHONE.
[2021-08-30] MEDS: NACL 0.45% 1,000 ML IV SCH (22:50)
--- NOTE | 2021-08-31 00:17 | NUR ---
CHECKED ON PATIENT. PATIENT ASLEEP. BED IN LOW POSITION. ALL SAFETY MEASURES IN PLACE. CALL LIGHT WITHIN REACH. WILL CONTINUE TO MONITOR.
[2021-08-31 04:00] VITALS: BP 141/79
--- NOTE | 2021-08-31 04:01 | NUR ---
CHECKED ON PATIENT. PATIENT ASLEEP. VISIBLE CHEST RISING AND FALLING. BREATHING EVEN AND UNLABORED. NO SOB NOTED. ALL SAFETY MEASURES IN PLACE. CALL LIGHT WITHIN REACH. WILL CONTINUE TO MONITOR.
[2021-08-31] MEDS: PIPERACILLIN/TAZOBACTAM 3.375 GM in DEXTROSE 5% 50 ML IV SCH ×4 (05:00→21:00)
[2021-08-31] MEDS: POTASSIUM CHL 40 MEQ/ D5-1/2NS 1,000 ML IV SCH ×4 (05:30→20:25)
[2021-08-31 06:26] LABS: BASOPHILS # (AUTO) 0.1 K/uL (0.00-0.22); BASOPHILS % (AUTO) 0.7 % (0.0-2.0); EOSINOPHILS # (AUTO) 0.2 K/uL (0-0.4); EOSINOPHILS % (AUTO) 1.6 % (0.0-4.0); HEMATOCRIT 41.2 % (36-48); HEMOGLOBIN 14.1 g/dL (12.0-16.0); LYMPHOCYTES # (AUTO) 1.6 K/uL (2.5-16.5); LYMPHOCYTES % (AUTO) 14.8 % (20.5-51.1); MEAN CORPUSCULAR HEMOGLOBIN 31 pg (27-31); MEAN CORPUSCULAR HGB CONC 34 g/dL (33-37); MEAN CORPUSCULAR VOLUME 89.3 fL (80-94); MONOCYTES # (AUTO) 0.7 K/uL (0.8-1.0); MONOCYTES % (AUTO) 6.8 % (1.7-9.3); NEUTROPHILS # (AUTO) 8.3 K/uL (1.8-7.7); NEUTROPHILS % (AUTO) 76.1 % (42.2-75.2); PLATELET COUNT (AUTO) 228 K/uL (140-450); RED BLOOD CELL COUNT(AUTO) 4.62 MIL/uL (4.20-5.40); RED CELL DISTRIBUTION WIDTH 14.1 % (11.6-13.7); WHITE BLOOD COUNT (AUTO) 10.8 K/uL (4.8-10.8)
[2021-08-31 06:34] LABS: ANION GAP 15.1 (8-16); CARBON DIOXIDE 27.2 mmol/L (21-32); CHLORIDE 111 mmol/L (98-107); CREATININE 0.6 mg/dL (0.6-1.3); GLUCOSE 107 mg/dL (74-106); POTASSIUM 3.3 mmol/L (3.5-5.1); SODIUM SERUM 150 mmol/L (136-145); UREA NITROGEN, BLOOD 22 mg/dL (7-18)
--- NOTE | 2021-08-31 07:45 | NUR ---
ENDORSED PATIENT REPORT TO AM SHIFT NURSE FOR CONTINUITY OF CARE. PATIENT IS STABLE.
[2021-08-31 08:00] VITALS: BP 156/87
[2021-08-31] MEDS: NACL 0.45% 1,000 ML IV SCH ×2 (08:50→18:50)
[2021-08-31] MEDS: VALSARTAN 80 MG TAB PO SCH (10:00)
[2021-08-31] MEDS ORDERED: hydroCHLOROthiazide 25 MG TAB PO SCH (10:00)
--- NOTE | 2021-08-31 10:45 | NUR ---
RECEIVED THE CONSENT FOR PICC , EGD AND PEG PLACEMENT FROM PT'S CONSERVATOR.
--- NOTE | 2021-08-31 11:00 | NUR ---
CONTACTED LEANNA FOR PICC LINE SERVICE, MANJINDER PICC LINE RN WILL CALL FOR ETA.
--- NOTE | 2021-08-31 11:26 | NUR ---
CONTACTED DR. FRANKLIN, NOTIFIED REGARDING PT'S CONSERVATOR ALREADY SIGNED THE CONSENT FOR EGD, PEG PLACEMENT AND ANESTHESIA. NO NEW ORDERS AT THIS TIME.
[2021-08-31 12:00] VITALS: BP 153/82
[2021-08-31] MEDS ORDERED: PROPOFOL 200 MG/20 ML VIAL IV ONE (12:22)
--- NOTE | 2021-08-31 12:30 | NUR ---
ANESTHESIOLOGIST DR. ROGERS WERE ABLE TO ESTABLISH IV ON LEFT HAND WITH GAUGE 24. IVF STARTED. PT WHEELED TO SURGERY IN STABLE CONDITION.
[2021-08-31] MEDS ORDERED: fentaNYL citrate 0.05 MG/ML VIAL ONE (12:45)
[2021-08-31] MEDS ORDERED: HYDROmorphone 1 MG/ML AMP IVP PRN (13:00)
[2021-08-31] MEDS ORDERED: HYDROcodone/APAP 5/325 MG 1 TAB TAB PO PRN (13:00)
[2021-08-31] MEDS ORDERED: MORPHINE SULFATE 4 MG/ML SYR IV PRN (13:00)
[2021-08-31] MEDS ORDERED: MORPHINE SULFATE 2 MG/ML SYR IVP PRN (13:00)
--- NOTE | 2021-08-31 13:40 | NUR ---
PT BACK FROM SURGERY IN STABLE CONDITION S/P PEG PLACEMENT.
--- NOTE | 2021-08-31 14:00 | NUR ---
PATIENT REMOVED IV, WAITING FOR PICC LINE NURSE. WILL CONTINUE TO MONITOR.
--- NOTE | 2021-08-31 14:29 | NUR ---
PT STABLE, ENDORSED TO RYLIE FOR CONTINUITY OF CARE.
--- NOTE | 2021-08-31 14:40 | NUR ---
ASSUMED CRAE. PATIENT IN BED, NOT IN ANY DISTRESS NOTED. WILL CONTINUE TO MONITOR.
--- NOTE | 2021-08-31 17:00 | NUR ---
PATIENT G-TUBE ACCIDENTALLY PULLED OUT BY THE PATIENT IN SPITE OF HAVING BINDER. NOTIFIED DR. FRANKLIN AND HE SAID TO GET ANOTHER CONSENT. TRIED TO CALL LUKASZ THE PUBLIC CONSERVATOR, THEIR OFFICE IS CLOSE AT THIS TIME. DR. FRANKLIN IS AWARE.
--- NOTE | 2021-08-31 18:35 | NUR ---
PATIENT ASLEEP AT THIS TIME. CALLED PUBLIC POLICY ASSOCIATE TO FOLLOW UP PICC LINE NURSE.
--- NOTE | 2021-08-31 18:53 | NUR ---
PICC LINE NURSE HERE, CONSENT IN THE CHART. WILL CONTINUE TO MONITOR.
--- NOTE | 2021-08-31 19:25 | NUR ---
PATIENT HAS MIDLINE INSERTED. REPORT GIVEN TO THE CANDLE WICKER FOR CONTINUITY OF CARE. NOT IN ANY DISTRESS NOTED.
[2021-08-31 20:00] VITALS: BP 175/91
--- NOTE | 2021-08-31 20:38 | NUR ---
PT WAS SEEN AND ASSESSED. PT WAS ON ROOM AIR WITH SPO2 OF 96%. PT IS IN NO RESPIRATORY DISTRESS AT THIS TIME. PRN TREATMENT NOT INDICATED AT THIS TIME. WILL CONTINUE TO MONITOR.
[2021-09-01] MEDS: POTASSIUM CHL 40 MEQ/ D5-1/2NS 1,000 ML IV SCH ×3 (03:49→16:27)
[2021-09-01 04:00] VITALS: BP 143/92
[2021-09-01] MEDS: PIPERACILLIN/TAZOBACTAM 3.375 GM in DEXTROSE 5% 50 ML IV SCH ×3 (04:46→21:00)
[2021-09-01] MEDS: NACL 0.45% 1,000 ML IV SCH (04:50)
[2021-09-01 06:28] LABS: BASOPHILS % (AUTO) 0.4 % (0.0-2.0); EOSINOPHILS # (AUTO) 0.1 K/uL (0-0.4); EOSINOPHILS % (AUTO) 1.2 % (0.0-4.0); HEMATOCRIT 39.9 % (36-48); HEMOGLOBIN 13.4 g/dL (12.0-16.0); LYMPHOCYTES # (AUTO) 1.3 K/uL (2.5-16.5); LYMPHOCYTES % (AUTO) 11.7 % (20.5-51.1); MEAN CORPUSCULAR HEMOGLOBIN 30 pg (27-31); MEAN CORPUSCULAR HGB CONC 34 g/dL (33-37); MEAN CORPUSCULAR VOLUME 89.3 fL (80-94); MONOCYTES # (AUTO) 0.8 K/uL (0.8-1.0); MONOCYTES % (AUTO) 7.5 % (1.7-9.3); NEUTROPHILS # (AUTO) 8.6 K/uL (1.8-7.7); NEUTROPHILS % (AUTO) 79.2 % (42.2-75.2); PLATELET COUNT (AUTO) 235 K/uL (140-450); RED BLOOD CELL COUNT(AUTO) 4.47 MIL/uL (4.20-5.40); RED CELL DISTRIBUTION WIDTH 14.3 % (11.6-13.7); WHITE BLOOD COUNT (AUTO) 10.8 K/uL (4.8-10.8)
[2021-09-01 06:35] LABS: ALBUMIN 2.9 g/dL (3.4-5.0); ASPARTATE AMINOTRANSFERASE 20 U/L (15-37); CARBON DIOXIDE 29.2 mmol/L (21-32); CHLORIDE 114 mmol/L (98-107); CREATININE 0.7 mg/dL (0.6-1.3); GLUCOSE 154 mg/dL (74-106); POTASSIUM 3.2 mmol/L (3.5-5.1); SODIUM SERUM 152 mmol/L (136-145); TOTAL BILIRUBIN 0.5 mg/dL (0.0-1.0); UREA NITROGEN, BLOOD 16 mg/dL (7-18)
--- NOTE | 2021-09-01 06:45 | NUR ---
FREQ ROUNDS. PT TRYING TO GET OUT OF BED. PULLED JEANE MIDLINE IV OUT DESPITE BEING IN SOFT WRIST RESTRAINTS. PT INCONTINENT. COMPLETE BED CHANGE #3. PT REMAINS CONFUSED . ALL SAFETY MEASURES IN PLACE. CONTINUE TO MONITOR.
--- NOTE | 2021-09-01 07:11 | NUR ---
CALLED PICC LINE INSERTION NURSE FOR MIDLINE/PICC LINE INSERTION. LEFT INFORMATION. CALLED DR NII MAXWELL REPORTED MIDLINE PULLED OUT. RECEIVED NEW ORDERS AND CARRIED THEM OUT.
--- NOTE | 2021-09-01 07:30 | NUR ---
ENDORSED TO DAY SHIFT NURSE TO F/U ON PICC LINE /MIDLINE INSERTION AND CONSENT. SO FAR PICC LINE NURSE HAS NOT CALLED BACK. CONTINUE TO MONITOR PT.
--- NOTE | 2021-09-01 07:31 | NUR ---
RECEIVED REPORT FROM BALLET TEACHER
[2021-09-01 08:00] VITALS: BP 159/76
--- NOTE | 2021-09-01 08:30 | NUR ---
SPOKE TO FOOD TRUCK CATERER TO OBTAIN CONSENT FOR EGD PEG AND MIDLINE FROM REGIONAL. WILL FOLLOW UP
[2021-09-01] MEDS: VALSARTAN 80 MG TAB PO SCH (09:00)
--- NOTE | 2021-09-01 09:50 | NUR ---
UNABLE TO GIVE MEDS DUE TO NO ACCESS. AWARE
[2021-09-01] MEDS ORDERED: DEXTROSE 5% 1,000 ML IV SCH (13:00)
--- NOTE | 2021-09-01 13:02 | NUR ---
09/01/21 RD FOLLOW UP COMPLETED PLEASE REFER TO NUTRITION ASSESSMENT UNDER CARE ACTIVITY FOR ESTIMATED NUTRITIONAL NEEDS. 1. CONSIDER TPN/PPN PT IS NPO FOR > 7 DAYS 2. WHEN/IF MEDICALLY APPROPRIATE AND PT IS ABLE TO START TF, CONSIDER TF VITAL AF 1.2 @ 50 ML/HR WITH FWF 150 ML Q6H -START AT 10 ML/HR AND INCREASE BY 10 ML Q8H TOLERATED -WILL PROVIDE 1440 KCAL AND 90 GM PROTEIN, MEETING 85% KCAL AND 100% PROTEIN NEEDS 3. RD TO FOLLOW-UP 2-3 DAYS, HIGH RISK ADIN LIGHT RD
[2021-09-01] MEDS: PANTOPRAZOLE 40 MG INJ VIAL IVP SCH (13:33)
[2021-09-01] MEDS ORDERED: KCL 20 MEQ/WATER INJ PREMIX 200 ML IV SCH (14:00)
--- NOTE | 2021-09-01 18:54 | NUR ---
NO RESPIRATORY DISTRESS, NO S/S OF PAIN. WILL ENDORSE TO NEXT SHIFT
--- NOTE | 2021-09-01 19:15 | NUR ---
RECEIVED PT REPORT FROM AM NURSE FOR CONTINUITY OF CARE. PT RESTING IN BED AWAKE, CONFUSED. SOFT WRIST RESTRAINTS AND MITTEN RESTRAINTS IN PLACE. IV LAC 22G [id number]%NS @150CC/HR. CONTINUE TO MONITOR.
[2021-09-01 20:00] VITALS: BP 184/82
[2021-09-02 04:00] VITALS: BP 153/71
[2021-09-02] MEDS: POTASSIUM CHL 40 MEQ/ D5-1/2NS 1,000 ML IV SCH ×4 (04:00→19:05)
[2021-09-02] MEDS: PIPERACILLIN/TAZOBACTAM 3.375 GM in DEXTROSE 5% 50 ML IV SCH ×3 (04:06→23:04)
[2021-09-02 06:15] LABS: BASOPHILS % (AUTO) 0.2 % (0.0-2.0); EOSINOPHILS # (AUTO) 0.3 K/uL (0-0.4); EOSINOPHILS % (AUTO) 2.8 % (0.0-4.0); HEMATOCRIT 38.7 % (36-48); HEMOGLOBIN 13.1 g/dL (12.0-16.0); LYMPHOCYTES # (AUTO) 1.6 K/uL (2.5-16.5); LYMPHOCYTES % (AUTO) 14.3 % (20.5-51.1); MEAN CORPUSCULAR HEMOGLOBIN 30 pg (27-31); MEAN CORPUSCULAR HGB CONC 34 g/dL (33-37); MEAN CORPUSCULAR VOLUME 88.1 fL (80-94); MONOCYTES # (AUTO) 0.8 K/uL (0.8-1.0); MONOCYTES % (AUTO) 6.8 % (1.7-9.3); NEUTROPHILS # (AUTO) 8.7 K/uL (1.8-7.7); NEUTROPHILS % (AUTO) 75.9 % (42.2-75.2); PLATELET COUNT (AUTO) 224 K/uL (140-450); RED BLOOD CELL COUNT(AUTO) 4.39 MIL/uL (4.20-5.40); RED CELL DISTRIBUTION WIDTH 14.1 % (11.6-13.7); WHITE BLOOD COUNT (AUTO) 11.4 K/uL (4.8-10.8)
[2021-09-02 06:45] LABS: ANION GAP 13.3 (8-16); CARBON DIOXIDE 26.2 mmol/L (21-32); CHLORIDE 109 mmol/L (98-107); CREATININE 0.6 mg/dL (0.6-1.3); GLUCOSE 177 mg/dL (74-106); POTASSIUM 3.5 mmol/L (3.5-5.1); SODIUM SERUM 145 mmol/L (136-145); UREA NITROGEN, BLOOD 7 mg/dL (7-18)
--- NOTE | 2021-09-02 07:20 | NUR ---
ENDORSED PT REPORT TO DAY SHIFT NURSE FOR CONTINUITY OF CARE.
--- NOTE | 2021-09-02 07:30 | NUR ---
RECEIVED REPORT FROM PM SHIFT RN FOR CONTINUITY OF CARE. PT. STABLE, SLEEPING COMFORTABLE. RECEIVED WITH RESTRAINT ON. ( BILTARAL MITTENT AND SOFT WRIST RESTRAINT). IV SITE ON LAC , IV FLUID RUNNING. ALL SAFETY MEASURES IN PLACED. WILL CONTINUE TO MONITOR THE PT.
[2021-09-02 08:00] VITALS: BP 166/95
[2021-09-02] MEDS: PANTOPRAZOLE 40 MG INJ VIAL IVP SCH (08:50)
[2021-09-02] MEDS: VALSARTAN 80 MG TAB PO SCH (08:51)
--- NOTE | 2021-09-02 10:00 | NUR ---
PT. STABLE WITH VENT SUPPORT. LYING IN THE BED,EYES OPEN. NO NOTED DISTRESS. IV ABX WAS ADMINISTERED ORDERED. DUE MEDICATION WAS NOT ADMINISTERED DUE TO PT. 'S G TUBE SITE WAS LEAKING AND NOW WOUND VAC IS CONNECTED. AWARE.SAFETY MEASURES IN PLACE. WILL CONTINUE TO MONITOR THE PT. Addendum: 09/02/21 at 1315 by Johnathan Dominguez RN WRONG PT. CHART. ERROR
--- NOTE | 2021-09-02 10:00 | NUR ---
PT. STABLE ON ROOM AIR SLEEPING COMFORTABLY. NO ACUTE DISTRESS OBSERVED.ALL SAFETY MEASURES IN PLACE. WILL CONTINUE TO MONITOR THE PT.
--- NOTE | 2021-09-02 12:54 | NUR ---
MADE ROUND TO THE PT'S ROOM. PT. STABLE ON VENT SUPPORT. SLEEPING COMFORTABLY. NO NOTED DISTRESS. ALL SAFETY MEASURES IN PLACED. BED IN LOW POSITION. WILL CONTINUE TO MONITOR THE PT. Addendum: 09/02/21 at 1315 by Johnathan Dominguez RN WRONG PT. CHART. ERROR
--- NOTE | 2021-09-02 13:21 | NUR ---
ROUNDED TO THE PT;S ROOM. PT. COMFORTABLY SLEEPING. STABLE ON ROOM AIR. NO NOTED DISTRESS. ALL SAFETY MEASURES IN PLACE. DUE ABX WAS ADMINISTERED. TOLERATED WELL. WILL CONTINUE TO MONITOR THE PT.
[2021-09-02 16:00] VITALS: BP 157/86
--- NOTE | 2021-09-02 16:23 | NUR ---
ROUNDED TO THE PT.'S ROOM. PT. COMFORTABLY SLEEPING. WITHOUT ANY DISTRESS NOTED. BREATHINGS EVEN AND UNLABORED. ALL SAFETY MEASURES IN PLACE. WILL CONTINUE TO MONITOR TH PT.
--- NOTE | 2021-09-02 18:13 | NUR ---
ROUND MADE, PT. ASLEEP. WITH NO ACUTE DISTRESS NOTED. STABLE ON ROOM AIR. ALL SAFETY MEASURES IN PLACE. CONTINUE ON BILAT WRIST RESTRAINT FOR SAFETY OF LINES. CONTINUE TO MONITOR THE PT.
--- NOTE | 2021-09-02 19:27 | NUR ---
REPORT ENDORSED TO PM CLEMENT MATIAS FOR CONTINUITY OF CARE. PT. STABLE.
--- NOTE | 2021-09-02 19:28 | NUR ---
RECEIVED REPORT FROM MORNING SHIFT NURSE FOR CONTINUITY OF CARE. PATIENT IS STABLE IN BED. A&OX1. RESPONDS TO NAME. DENIES PAIN. ON ROOM AIR. RESPIRATIONS EVEN AND UNLABORED WITH NO APPARENT S/SX OF ACUTE DISTRESS. PATIENT IS INCONTINENT. SKIN IS INTACT. PLAN OF CARE AND WHITE COMMUNICATION BOARD UPDATED. BED IN LOW/LOCKED POSITION. CALL LIGHT WITHIN REACH. WILL CONTINUE TO MONITOR.
--- NOTE | 2021-09-02 20:00 | NUR ---
REVIEWED PLAN OF CARE WITH FLORENCIO CASTANO LVN AND WILL CONTINUE WITH PLAN OF CARE.
--- NOTE | 2021-09-02 21:25 | NUR ---
PATIENT IS STABLE AND AWAKE. DENIES PAIN. RESPIRATIONS EVEN AND UNLABORED WITH NO APPARENT S/SX OF ACUTE DISTRESS. WHITE COMMUNICATION BOARD UPDATED. ALL SAFETY MEASURES IN PLACE. CALL LIGHT WITHIN REACH. WILL CONTINUE TO MONITOR.
--- NOTE | 2021-09-02 23:25 | NUR ---
CHECKED PATIENT. STABLE AND ASLEEP. CHEST IS RISING AND FALLING EVENLY. RESPIRATIONS EVEN AND UNLABORED WITH NO APPARENT S/SX OF ACUTE DISTRESS. WHITE COMMUNICATION BOARD UPDATED. ALL SAFETY MEASURES IN PLACE. CALL LIGHT WITHIN REACH. WILL CONTINUE TO MONITOR.
--- NOTE | 2021-09-03 01:25 | NUR ---
ROUNDED ON PATIENT. STABLE AND ASLEEP. CHEST IS RISING AND FALLING EVENLY. RESPIRATIONS EVEN AND UNLABORED WITH NO APPARENT S/SX OF ACUTE DISTRESS. WHITE COMMUNICATION BOARD UPDATED. ALL SAFETY MEASURES IN PLACE. CALL LIGHT WITHIN REACH. WILL CONTINUE TO MONITOR.
[2021-09-03] MEDS: POTASSIUM CHL 40 MEQ/ D5-1/2NS 1,000 ML IV SCH ×4 (01:45→21:45)
[2021-09-03 04:00] VITALS: BP 148/90
--- NOTE | 2021-09-03 05:25 | NUR ---
PATIENT IS AWAKE AND STABLE. DENIES PAIN. RESPIRATIONS EVEN AND UNLABORED WITH NO APPARENT S/SX OF ACUTE DISTRESS. WHITE COMMUNICATION BOARD UPDATED. ALL SAFETY MEASURES IN PLACE. CALL LIGHT WITHIN REACH. WILL CONTINUE TO MONITOR.
[2021-09-03] MEDS: PIPERACILLIN/TAZOBACTAM 3.375 GM in DEXTROSE 5% 50 ML IV SCH ×3 (05:46→20:55)
[2021-09-03 06:52] LABS: BASOPHILS % (AUTO) 0.3 % (0.0-2.0); EOSINOPHILS # (AUTO) 0.3 K/uL (0-0.4); EOSINOPHILS % (AUTO) 3.2 % (0.0-4.0); HEMATOCRIT 39.6 % (36-48); HEMOGLOBIN 13.4 g/dL (12.0-16.0); LYMPHOCYTES # (AUTO) 1.7 K/uL (2.5-16.5); LYMPHOCYTES % (AUTO) 16.1 % (20.5-51.1); MEAN CORPUSCULAR HEMOGLOBIN 30 pg (27-31); MEAN CORPUSCULAR HGB CONC 34 g/dL (33-37); MEAN CORPUSCULAR VOLUME 89.1 fL (80-94); MONOCYTES # (AUTO) 0.7 K/uL (0.8-1.0); MONOCYTES % (AUTO) 6.7 % (1.7-9.3); NEUTROPHILS # (AUTO) 7.8 K/uL (1.8-7.7); NEUTROPHILS % (AUTO) 73.7 % (42.2-75.2); PLATELET COUNT (AUTO) 209 K/uL (140-450); RED BLOOD CELL COUNT(AUTO) 4.45 MIL/uL (4.20-5.40); RED CELL DISTRIBUTION WIDTH 14.1 % (11.6-13.7); WHITE BLOOD COUNT (AUTO) 10.6 K/uL (4.8-10.8)
--- NOTE | 2021-09-03 07:10 | NUR ---
ENDORSED PATIENT TO MORNING SHIFT NURSE FOR CONTINUITY OF CARE. PATIENT IS STABLE.
[2021-09-03 07:14] LABS: ANION GAP 11.5 (8-16); CARBON DIOXIDE 25.4 mmol/L (21-32); CHLORIDE 105 mmol/L (98-107); CREATININE 0.5 mg/dL (0.6-1.3); GLUCOSE 161 mg/dL (74-106); POTASSIUM 3.9 mmol/L (3.5-5.1); SODIUM SERUM 138 mmol/L (136-145); UREA NITROGEN, BLOOD 6 mg/dL (7-18)
--- NOTE | 2021-09-03 07:48 | NUR ---
RECEIVED REPORT FROM ELECTRONIC EQUIPMENT REPAIRER FOR CONTINUITY OF CARE. PATIENT ALERT X1 TO NAME. NOT IN ANY DISTRESS NOTED. PATIENT WITH BILATERAL WRIST RESTRAINT, TRYING OUT TO PULL OUT IV. BED IN LOW POSITION. CALL LIGHT WITHIN REACH. WILL CONTINUE TO MONITOR.
[2021-09-03 08:00] VITALS: BP 154/88
[2021-09-03] MEDS: PANTOPRAZOLE 40 MG INJ VIAL IVP SCH (08:44)
[2021-09-03] MEDS: VALSARTAN 80 MG TAB PO SCH (08:45)
--- NOTE | 2021-09-03 12:00 | NUR ---
PATIENT CHANGED, CLEANED MOUTH, CAREGIVER AT BEDSIDE. WILL CONTINUE TO MONITOR.
--- NOTE | 2021-09-03 14:03 | NUR ---
DR. MAXWELL CAME, WITH ORDERS.
[2021-09-03 16:00] VITALS: BP 158/84
--- NOTE | 2021-09-03 19:00 | NUR ---
REPORT GIVEN TO THE EQUITY DIRECTOR FOR CONTINUITY OF CARE. RESTRAINT UPDATED.
[2021-09-03 20:00] VITALS: BP 148/91
--- NOTE | 2021-09-03 21:20 | NUR ---
PROVIDED SKIN CARE OF THE LIPS TO THE PATIENT. TOLERATED WELL. DENIES PAIN. RESPIRATIONS EVEN AND UNLABORED WITH NO APPARENT S/SX OF ACUTE DISTRESS. WRIST RESTRAINTS IN PLACE PER MD ORDER. WHITE COMMUNICATION BOARD UPDATED. ALL SAFETY MEASURES IN PLACE. CALL LIGHT WITHIN REACH. WILL CONTINUE TO MONITOR.
--- NOTE | 2021-09-04 03:20 | NUR ---
PROVIDED LIP MOISTURIZER TO PREVENT LIPS FROM CRACKING. PATIENT IS STABLE AND ASLEEP. CHEST IS RISING AND FALLING EVENLY. RESPIRATIONS EVEN AND UNLABORED WITH NO APPARENT S/SX OF ACUTE DISTRESS. WHITE COMMUNICATION BOARD UPDATED. ALL SAFETY MEASURES IN PLACE. CALL LIGHT WITHIN REACH. WILL CONTINUE TO MONITOR.
[2021-09-04 04:00] VITALS: BP 139/88
[2021-09-04] MEDS: POTASSIUM CHL 40 MEQ/ D5-1/2NS 1,000 ML IV SCH ×3 (04:25→17:01)
[2021-09-04] MEDS: PIPERACILLIN/TAZOBACTAM 3.375 GM in DEXTROSE 5% 50 ML IV SCH ×3 (05:00→21:28)
--- NOTE | 2021-09-04 06:12 | NUR ---
Patient's Plan of Care was discussed and reviewed with FOOD TESTER: FLORENCIO/ Mayo BRYANT RN
[2021-09-04 06:51] LABS: BASOPHILS # (AUTO) 0.1 K/uL (0.00-0.22); BASOPHILS % (AUTO) 0.7 % (0.0-2.0); EOSINOPHILS # (AUTO) 0.3 K/uL (0-0.4); EOSINOPHILS % (AUTO) 2.8 % (0.0-4.0); HEMATOCRIT 40.4 % (36-48); HEMOGLOBIN 13.7 g/dL (12.0-16.0); LYMPHOCYTES # (AUTO) 1.4 K/uL (2.5-16.5); LYMPHOCYTES % (AUTO) 12.1 % (20.5-51.1); MEAN CORPUSCULAR HEMOGLOBIN 30 pg (27-31); MEAN CORPUSCULAR HGB CONC 34 g/dL (33-37); MONOCYTES # (AUTO) 0.7 K/uL (0.8-1.0); MONOCYTES % (AUTO) 5.9 % (1.7-9.3); NEUTROPHILS # (AUTO) 9.3 K/uL (1.8-7.7); NEUTROPHILS % (AUTO) 78.5 % (42.2-75.2); PLATELET COUNT (AUTO) 223 K/uL (140-450); RED BLOOD CELL COUNT(AUTO) 4.59 MIL/uL (4.20-5.40); RED CELL DISTRIBUTION WIDTH 14.1 % (11.6-13.7); WHITE BLOOD COUNT (AUTO) 11.9 K/uL (4.8-10.8)
[2021-09-04 07:19] LABS: ALBUMIN 2.3 g/dL (3.4-5.0); ANION GAP 14.8 (8-16); ASPARTATE AMINOTRANSFERASE 21 U/L (15-37); CARBON DIOXIDE 24.2 mmol/L (21-32); CHLORIDE 101 mmol/L (98-107); CREATININE 0.5 mg/dL (0.6-1.3); GLUCOSE 168 mg/dL (74-106); SODIUM SERUM 136 mmol/L (136-145); TOTAL BILIRUBIN 0.6 mg/dL (0.0-1.0); UREA NITROGEN, BLOOD 5 mg/dL (7-18)
--- NOTE | 2021-09-04 07:20 | NUR ---
ENDORSED PATIENT TO MORNING SHIFT NURSE FOR CONTINUITY OF CARE. PATIENT IS STABLE.
--- NOTE | 2021-09-04 07:21 | NUR ---
RECEIVED REPORT FROM LAMP INSPECTOR NURSE FOR CONTINUITY OF CARE. PT BREATHING IS EVEN AND UNLABORED. NO SIGNS OF DISTRESS NOTED. RESTRAINTS PLACED ON PT CORRECTLY. NO SIGNS OF PAIN OR DISCOMFORT NOTED. CALL LIGHT WITHIN REACH. ALL SAFETY MEASURES IN PLACE. PT IS STABLE.
[2021-09-04] MEDS: VALSARTAN 80 MG TAB PO SCH (09:00)
[2021-09-04] MEDS: PANTOPRAZOLE 40 MG INJ VIAL IVP SCH (09:26)
--- NOTE | 2021-09-04 12:00 | NUR ---
PT REP CALLED ABOUT POLST FOR DNR AND COMFORT CARE. ASKED IF DR FILLED OUT TOO SO THEY CAN GET IT BACK COPY IN EMAIL. PT ASKING IF THE SURGERY CONSENT CAN BE EMAILED BY [facility] TOMORROW SINCE THAT IS HOW THEY PREFER TO SIGN THE PAPERWORK.PT BREATHING IS EVEN AND UNLABORED. NO SIGNS OF DISTRESS NOTED. RESTRAINTS PLACED ON PT CORRECTLY. NO SIGNS OF PAIN OR DISCOMFORT NOTED. CALL LIGHT WITHIN REACH. ALL SAFETY MEASURES IN PLACE. PT IS STABLE.
[2021-09-04] MEDS: HYDRAGUARD CREAM TP SCH (13:00)
[2021-09-04 16:00] VITALS: BP 143/90
--- NOTE | 2021-09-04 16:00 | NUR ---
PT BREATHING IS EVEN AND UNLABORED. NO SIGNS OF DISTRESS NOTED. RESTRAINTS PLACED ON PT CORRECTLY. NO SIGNS OF PAIN OR DISCOMFORT NOTED. CALL LIGHT WITHIN REACH. ALL SAFETY MEASURES IN PLACE. PT IS STABLE.
--- NOTE | 2021-09-04 19:14 | NUR ---
ENDORSED PT TO SAMPLE PREP TECHNICIAN NURSE FOR CONTINUITY OF CARE.
[2021-09-04 20:00] VITALS: BP 139/89
--- NOTE | 2021-09-04 21:15 | NUR ---
PROVIDED LIP SKIN CARE. TOLERATED WELL. FLACC=0. RESPIRATIONS EVEN AND UNLABORED WITH NO APPARENT S/SX OF ACUTE DISTRESS. WRIST RESTRAINTS IN PLACE PER MD ORDER. WHITE COMMUNICATION BOARD UPDATED. ALL SAFETY MEASURES IN PLACE. CALL LIGHT WITHIN REACH. WILL CONTINUE TO MONITOR.
[2021-09-05] MEDS: POTASSIUM CHL 40 MEQ/ D5-1/2NS 1,000 ML IV SCH ×4 (00:25→20:25)
--- NOTE | 2021-09-05 01:15 | NUR ---
ROUNDED ON PATIENT. STABLE AND ASLEEP. CHEST IS RISING AND FALLING EVENLY. RESPIRATIONS EVEN AND UNLABORED WITH NO APPARENT S/SX OF ACUTE DISTRESS. SOFT WRIST RESTRAINTS IN PLACE. WHITE COMMUNICATION BOARD UPDATED. ALL SAFETY MEASURES IN PLACE. CALL LIGHT WITHIN REACH. WILL CONTINUE TO MONITOR.
[2021-09-05] MEDS: HYDRAGUARD CREAM TP SCH ×2 (01:29→13:10)
[2021-09-05 04:00] VITALS: BP 145/95
[2021-09-05] MEDS: PIPERACILLIN/TAZOBACTAM 3.375 GM in DEXTROSE 5% 50 ML IV SCH ×3 (05:00→20:58)
--- NOTE | 2021-09-05 05:15 | NUR ---
CLEANED AND CHANGED PATIENT. TOLERATED WELL. FLACC=0. RESPIRATIONS EVEN AND UNLABORED WITH NO APPARENT S/SX OF ACUTE DISTRESS. ALL NEEDS MET. WHITE COMMUNICATION BOARD UPDATED. ALL SAFETY MEASURES IN PLACE. CALL LIGHT WITHIN REACH. WILL CONTINUE TO MONITOR.
--- NOTE | 2021-09-05 07:15 | NUR ---
ENDORSED PATIENT TO MORNING SHIFT FOR CONTINUITY OF CARE. PATIENT IS STABLE.
--- NOTE | 2021-09-05 07:16 | NUR ---
RECEIVED REPORT FROM SAND CONDITIONER NURSE FOR CONTINUITY OF CARE. PT BREATHING IS EVEN AND UNLABORED. NO SIGNS OF DISTRESS NOTED. RESTRAINTS PLACED ON PT CORRECTLY. NO SIGNS OF PAIN OR DISCOMFORT NOTED. CALL LIGHT WITHIN REACH. ALL SAFETY MEASURES IN PLACE. PT IS STABLE.
[2021-09-05 08:00] VITALS: BP 162/91
[2021-09-05] MEDS: VALSARTAN 80 MG TAB PO SCH (09:00)
[2021-09-05] MEDS: PANTOPRAZOLE 40 MG INJ VIAL IVP SCH (09:00)
--- NOTE | 2021-09-05 09:00 | NUR ---
PRN MED FOR HIGH BP GIVEN PER MD ORDER. WILL REASSESS. PT BREATHING IS EVEN AND UNLABORED. NO SIGNS OF DISTRESS NOTED. RESTRAINTS PLACED ON PT CORRECTLY. NO SIGNS OF PAIN OR DISCOMFORT NOTED. CALL LIGHT WITHIN REACH. ALL SAFETY MEASURES IN PLACE. PT IS STABLE.
[2021-09-05] MEDS ORDERED: hydrALAZINE 20 MG/ML VIAL IVP PRN (09:25)
--- NOTE | 2021-09-05 11:00 | NUR ---
CONSENTS WERE SENT TO [facility] TO SIGN AND RETURN BY FAX. WIATING FOR RETURN OF PAPERWORK CONSENTS. PT BREATHING IS EVEN AND UNLABORED. NO SIGNS OF DISTRESS NOTED. RESTRAINTS PLACED ON PT CORRECTLY. NO SIGNS OF PAIN OR DISCOMFORT NOTED. CALL LIGHT WITHIN REACH. ALL SAFETY MEASURES IN PLACE. PT IS STABLE.
--- NOTE | 2021-09-05 11:07 | NUR ---
BP IS WNL. PT BREATHING IS EVEN AND UNLABORED. NO SIGNS OF DISTRESS NOTED. RESTRAINTS PLACED ON PT CORRECTLY. NO SIGNS OF PAIN OR DISCOMFORT NOTED. CALL LIGHT WITHIN REACH. ALL SAFETY MEASURES IN PLACE. PT IS STABLE.
--- NOTE | 2021-09-05 19:15 | NUR ---
RECEIVED PT SLEEPING , BUT AWAKEABLE , NPO . STILL FOR CONSENT FOR OR , POLST NOT YET SIGN BY DOCTOR . IV SITE INTACT AND PATENT . INCONTINENT , FALL RISK - BED ALARM ON . WILL CONT. TO MONITOR . Addendum: 09/06/21 at 0501 by Bridget Tineo RN THE IV SITE WRAPPED AROUND W/ GAUZE - REMOVE IT - SEEMS TOO TIGHT , EDEMATOUS ARM ON THE LEFT NOTED - ELEVATE IT WITH PILLOW . - WILL CONT. TO MONITOR .
--- NOTE | 2021-09-05 19:15 | NUR ---
ENDORSED TO WASTEWATER ENGINEER NURSE FOR CONTINUITY OF CARE. POC DISCUSSED.
[2021-09-05 20:00] VITALS: BP 140/84
--- NOTE | 2021-09-06 | NUR ---
ROUNDS , AWAKEABLE , O2 SAT WNL , BP 140/ 85 , NE 100 , AFEBRILE . BED ALARM ON . WILL CONT. TO MONITOR .
[2021-09-06] MEDS: POTASSIUM CHL 40 MEQ/ D5-1/2NS 1,000 ML IV SCH ×2 (00:17→09:54)
[2021-09-06] MEDS: HYDRAGUARD CREAM TP SCH ×2 (01:00→13:00)
--- NOTE | 2021-09-06 03:00 | NUR ---
DC PLANNING SW AND CM CALL PATIENT'S IRC/CW LUKASZ FISHER AT TO DISCUSS PATIENT'S CURRENT MEDICAL STATUS, LACK OF COMMUNICATION BETWEEN AGENCY AND [facility]/STAFF ABOUT CONSENTS AND FORMS THAT ARE NEEDED TO PURSUE WITH PATIENT'S CARE AND TREATMENT. PER EUGENE LAL SHE IS NOT THE ONLY ONE THAT MAKES DECISIONS AND CONSENTS FOR PATIENT'S MEDICAL DECISIONS, STATED THAT IS A TEAM EFFORT WITH HER DOCUMENT EXAMINER RICHARD ARCHULETA AND NURSE PASTE MAKER NAV OAKLEY WHO IS THE ONE CURRENTLY THAT IS HOLDING BACK ON THE CONSENT FORMS. CM AND SW EXPRESSED HER CONCERNS FOR PATIENT RECEIVING HER NEEDS ON CARE MET DUE TO THE DELAYS. SW EXPLAIN THAT THE PURPOSE OF THE CALL IS TO MAKE A CARE PLAN MEETING WITH BOTH CARE TEAMS [facility] AND [facility]. CARE WORKER AGREED AND STATED THAT SHE WILL BE CONFIRMING WITH HER BOTH ASSISTANT TO THE DEAN AND RN AND WILL CONFIRM MEETING AVAILABLE FOR AT 9:30AM. SW AGREED AND WILL FOLLOW UP NEEDED. Addendum: 09/07/21 at 1433 by Nancie ROWLAND DC PLANNING LATE ENTRY CALL WAS ON 09/06/2021 AT ABOUT 15:30 IR/CW LUKASZ FISHER AT CALL THESE COMMISSARY ASSISTANT BACK CONFIRMING THAT SHE AN [facility] DOCUMENT EXAMINER AND RN WILL BE AVAILABLE FOR CARE PLAN MEETING AT 9:30AM IN THE TEAMS. SW THANKED HER FOR THE CALL AND CONFIRMATION AND LET HER KNOW THAT AN INVITE TO TEAMS WILL BE SEND TO THEM AND ENDED THE CALL. Addendum: 09/07/21 at 1509 by Nancie Su DC PLANNING TEAMS MEETING SCHEDULED FOR PATIENT'S CARE PLAN WAS ABOUT 9:30AM WITH PATIENTS' [facility] DIRECTOR METABOLISM LUKASZ FISHER, DOCUMENT EXAMINER RICHARD ARCHULETA AND [facility] NURSE PASTE MAKER NAV OAKLEY WELL ANISA REESEF, PRETTY CHICAS CONVENTIONS ASSISTANT, ELA JOSÉ DIRECTOR OF CASE MANAGEMENT AND GOLF CART ATTENDANT AND [facility] MOLDED GOODS SPOT PICKER. DURING THE MEETING PATIENT'S CURRENT MEDICAL STATUS WAS DISCUSSED, CONSENTS, POLTS AND PENDING MEDICAL PROCEDURES WERE DISCUSSED IN DETAIL WELL CURRENT MEDICAL NEEDS AND RECOMMENDATIONS FROM MD MAXWELL. PATIENT'S PROGNOSIS AND QUALITY OF LIFE WAS DISCUSSED, CONCERNS AND CLARITY ABOUT HOSPICE VS PALLIATIVE CARE ALSO WAS BROUGHT UP IN DETAIL FOR PATIENT'S BEST INTEREST. DURING THE MEETING DISCUSSION TOOK PLACE ON ALTERNATIVES GIVEN HER CURRENT MEDICAL STATE AND DETERMINE TO MOVE FORWARD WITH PATIENT GETTING HOSPICE FOR COMFORT CARE. WHEN MEETING WAS FINALIZED IT WAS DECIDED THAT [facility]/ WILL CONTACT HOSPICE CARE TO SET UP AND ACCOMMODATE PATIENTS COMFORT CARE AND SNF PLACEMENT SOON POSSIBLE. SW WILL UPDATE [facility] ALL WITH PROCESS. Addendum: 09/07/21 at 1512 by Nancie Su DC PLANNING SW CALL [facility] AT AND SPOKE TO [facility] ABOUT REFERRAL. PATIENT'S INFORMATION AND CLINICALS WAS SEND VIA FAX AT WITH CONFIRMATION COMPLETED AT ABOUT 12:25PM Addendum: 09/07/21 at 1518 by Nancie ROWLAND DC PLANNING SW CALL [facility] AT AND SPOKE TO [facility] FOR FOLLOW UP ON REFERRAL SEND EARLIER TODAY. PER [facility] SHE STILL REVIEWING AND FINALIZING WITH ELIGIBILITY. STATED SHE WILL CALL THESE COMMISSARY ASSISTANT BACK SOON POSSIBLE. [facility] WILL FOLLOW UP Addendum: 09/08/21 at 1136 by Nancie ROWLAND DC PLANNING SW CALL PATIENT'S IRC/CW LUKASZ FISHER AT TO PROVIDE HER WITH PATIENT'S UPDATED STATUS AND INFORMATION. EUGENE LAL WAS NOT AVAILABLE AND SW LEFT HER A MSG INFORMING HER THAT [facility] IS MOVING FORWARD WITH [facility] HOSPICE. ZION LEFT HER THESE COMMISSARY ASSISTANT DIRECT CONTACT NUMBER AND REQUEST FOR CALL BACK. SW CALL [facility] HOSPICE CARE AT SPOKE TO [facility] ABOUT REFERRAL SEND YESTERDAY. PER [facility] PATIENT HAS BEEN ACCEPTED AND ARE NOW WORKING ON GETTING PATIENT'S CONSENTS FROM IRC/EUGENE LAL AND THEIR CARE TEAM, AND ALSO ARE SEARCHING FOR A SNF THAT WILL TAKE PATIENT. [facility] WILL BE FOLLOWING UP WITH [facility]/STAFF SOON PLACEMENT AND TRANSPORT IS ARRANGE TO SEMICONDUCTOR PACKAGES TESTER PATIENT AT [place] FROM [facility]. Addendum: 09/08/21 at 2691 by Nancie Su SS SW CALL [facility] HOSPICE CARE AT SPOKE TO [facility] WHO PROVIDED UPDATED INFORMATION ABOUT PATIENT'S NEXT LEVEL OF CARE SET UP. PER [facility] SHE HAS ALREADY CONTACTED [facility]/TEAM AND GOT ALL CONSENTS NEEDED WELL OF CONFIRMATION TO THE (SNF) FOR SHARE OF COST MONTHLY IN ORDER TO HAVE PATIENT PLACED IN [facility] (SNF) TO CONTINUE WITH HOSPICE CARE. [facility] REPORTED THAT SHE WILL BE SETTING UP PATIENT'S TRANSPORT FROM [facility] TO [facility] FOR TODAY AND WILL BE CONTACTING THESE COMMISSARY ASSISTANT WITH TIME FOR SEMICONDUCTOR PACKAGES TESTER. SW AGREED AND ENDED THE CALL. SANDY FROM [facility] CALL BACK STATING THAT SHE HAS CONFIRMED WITH [facility]IZA [facility]LE ([place]) ISAIAH FROM ADMISSIONS THAT ALL INFORMATION REQUIRED FROM IRC TEAM HAS BEEN SEND AND COMPLETE , AND NOW PATIENT WILL BE SEMICONDUCTOR PACKAGES TESTER AT 17:30 TODAY FROM [facility] GOING TO ELIZA [facility]LE.
[2021-09-06 04:00] VITALS: BP 140/93
--- NOTE | 2021-09-06 04:00 | NUR ---
ROUNDS , AWAKEABLE , O2 SAT 97 5. BED ALARM ON . WOILL CONT. TO MONITOR .
--- NOTE | 2021-09-06 06:00 | NUR ---
AWAKEABLE , ASSESS THE ARM THE SWELLING BIT SUBSIDED . ELEVATE TO ROLLED TOWEL . BED ALARM ON .
[2021-09-06 07:10] LABS: BASOPHILS % (AUTO) 0.3 % (0.0-2.0); EOSINOPHILS # (AUTO) 0.2 K/uL (0-0.4); EOSINOPHILS % (AUTO) 1.6 % (0.0-4.0); HEMOGLOBIN 12.9 g/dL (12.0-16.0); LYMPHOCYTES # (AUTO) 1.3 K/uL (2.5-16.5); LYMPHOCYTES % (AUTO) 10.3 % (20.5-51.1); MEAN CORPUSCULAR HEMOGLOBIN 30 pg (27-31); MEAN CORPUSCULAR HGB CONC 34 g/dL (33-37); MEAN CORPUSCULAR VOLUME 88.8 fL (80-94); MONOCYTES # (AUTO) 1.2 K/uL (0.8-1.0); MONOCYTES % (AUTO) 9.2 % (1.7-9.3); NEUTROPHILS # (AUTO) 10.2 K/uL (1.8-7.7); NEUTROPHILS % (AUTO) 78.6 % (42.2-75.2); PLATELET COUNT (AUTO) 237 K/uL (140-450); RED BLOOD CELL COUNT(AUTO) 4.28 MIL/uL (4.20-5.40); RED CELL DISTRIBUTION WIDTH 14.4 % (11.6-13.7); WHITE BLOOD COUNT (AUTO) 12.9 K/uL (4.8-10.8)
--- NOTE | 2021-09-06 07:23 | NUR ---
ENDORSED TO LUIS LAZAR , PT IS IN STABLE CONDITION .
--- NOTE | 2021-09-06 07:30 | NUR ---
RECEIVED REPORT FROM TIRE BUILDER OPERATOR
[2021-09-06 07:42] LABS: ANION GAP 14.7 (8-16); CARBON DIOXIDE 21.7 mmol/L (21-32); CHLORIDE 103 mmol/L (98-107); CREATININE 1.2 mg/dL (0.6-1.3); GLUCOSE 161 mg/dL (74-106); POTASSIUM 5.4 mmol/L (3.5-5.1); SODIUM SERUM 134 mmol/L (136-145); UREA NITROGEN, BLOOD 11 mg/dL (7-18)
[2021-09-06 08:00] VITALS: BP 107/77
[2021-09-06] MEDS: VALSARTAN 80 MG TAB PO SCH (08:54)
[2021-09-06] MEDS: PANTOPRAZOLE 40 MG INJ VIAL IVP SCH (08:54)
--- NOTE | 2021-09-06 09:30 | NUR ---
DUE MEDS GIVEN ORAL CARE DONE
[2021-09-06] MEDS: DEXT 5% / NACL 0.45% 1,000 ML IV SCH (10:25)
--- NOTE | 2021-09-06 14:00 | NUR ---
ABRAM CARE DONE, NO RESPIRATORY DISTRESS, NO S/S OF PAIN.
[2021-09-06 16:00] VITALS: BP 128/78
--- NOTE | 2021-09-06 16:30 | NUR ---
PT RESTING WITH BREATHING UNLABORED AND TISHA, NO SIGNS OF DISTRESS NOTED. PT IS STABLE.
--- NOTE | 2021-09-06 19:30 | NUR ---
RECEIVED PT LYING IN BED, AWAKE, GARBLED SPEECH NOTED, UNABLE TO FOLLOW SIMPLE COMMANDS. NO SOB NOTED, LUNG SOUNDS DIMINISHED ON AUSCULTATION. NO S/S OF PAIN. URINE AND BOWEL INCONTINENT. W/ BLANCHABLE ERYTHEMA ON THE BUTTOCKS. ON BILATERAL SOFT WRIST RESTRAINTS, NO INJURY NOTED. SIDE RAILS UPX2. CALL LIGHT ON REACH. BED ALARM ON. BED ON THE LOWEST POSITION. HOB ELEVATED AT 30 DEG. WILL CONT TO MONITOR
--- NOTE | 2021-09-06 19:30 | NUR ---
ENDORSED PT TO MECHANICAL TECHNICIAN NURSE FOR CONTINUITY OF CARE. POC DISCUSSED.
[2021-09-06] MEDS ORDERED: SODIUM POLYSTYRENE 15 GM/60 ML UDBTL PR SCH (20:00)
--- NOTE | 2021-09-06 23:30 | NUR ---
NOTED IV SITE ON THE LUE IS SWOLLEN AND HAS REDNESS, IV LINE WAS TAKEN OUT. WILL RE-INSERT A NEW IV LINE
[2021-09-07] VITALS: BP 132/51
--- NOTE | 2021-09-07 00:25 | NUR ---
DR. MAXWELL IS PAGED TO MADE AWARE THAT MULTIPLE IV ATTEMPTS WERE MADE BY SEVERAL NURSES BUT WAS UNSUCCESSFUL, WAITING FOR CALLBACK
[2021-09-07] MEDS: DEXT 5% / NACL 0.45% 1,000 ML IV SCH ×2 (00:43→14:06)
[2021-09-07] MEDS: HYDRAGUARD CREAM TP SCH ×2 (01:00→13:00)
[2021-09-07 04:21] VITALS: BP 140/67
--- NOTE | 2021-09-07 06:09 | NUR ---
PATIENT HAS HER EYES CLOSED, AROUSABLE TO VERBAL STIMULI. AT TIMES PATIENT HAS CLEAR SPEECH BUT MOST OF THE TIME HAS GARBLED/INCOMPREHENSIBLE SPEECH. DOES NOT FOLLOW SIMPLE COMMANDS. NO S/S OF SOB AND PAIN NOTED. W/ BILATERAL SOFT WRIST RESTRAINTS, NO INJURY NOTED TO THE AREA. PERINEAL CARE PROVIDED. HAD 2 BM'S DURING THE SHIFT. REMAINS URINE INCONTINENT. IV SITE ON THE RIGHT WRIST GAUGE 24 IS PATENT AND INTACT. SIDE RAILS UPX2. CALL LIGHT ON REACH. HOB ELEVATED AT 30 DEG. ON ASPIRATION PRECAUTIONS. BED ALARM ON AND BED ON THE LOWEST POSITION. WILL ENDORSE TO INCOMING NURSE FOR CONTINUITY OF CARE
--- NOTE | 2021-09-07 07:25 | NUR ---
RECEIVED REPORT FROM TILE EDGER NURSE FOR CONTINUITY OF CARE.
[2021-09-07 08:00] VITALS: BP 151/65
[2021-09-07] MEDS: PANTOPRAZOLE 40 MG INJ VIAL IVP SCH (09:30)
--- NOTE | 2021-09-07 11:51 | NUR ---
RECEIVED CONSENT FOR SURGERY INFORM DR. FRANKLIN.
--- NOTE | 2021-09-07 13:24 | NUR ---
PT BROUGHT BACK BY OR NURSE. PROCEDURE WAS CANCELLED THE PROCEDURE. PT TO BE DISCHARGED TO HOSPICE CARE
--- NOTE | 2021-09-07 13:42 | NUR ---
LEFT MESSAGE TO DR. MAXWELL PT SURGERY IS CANCELLED AND JUST GOING SEND TO [facility] BUT NEED ORDER FOR HOSPICE .
[2021-09-07 13:56] LABS: BASOPHILS % (AUTO) 0.4 % (0.0-2.0); EOSINOPHILS # (AUTO) 0.2 K/uL (0-0.4); EOSINOPHILS % (AUTO) 2.5 % (0.0-4.0); HEMOGLOBIN 12.9 g/dL (12.0-16.0); LYMPHOCYTES # (AUTO) 1.1 K/uL (2.5-16.5); LYMPHOCYTES % (AUTO) 11.9 % (20.5-51.1); MEAN CORPUSCULAR HEMOGLOBIN 30 pg (27-31); MEAN CORPUSCULAR HGB CONC 34 g/dL (33-37); MEAN CORPUSCULAR VOLUME 88.2 fL (80-94); MONOCYTES # (AUTO) 0.9 K/uL (0.8-1.0); MONOCYTES % (AUTO) 9.4 % (1.7-9.3); NEUTROPHILS # (AUTO) 6.9 K/uL (1.8-7.7); NEUTROPHILS % (AUTO) 75.8 % (42.2-75.2); PLATELET COUNT (AUTO) 256 K/uL (140-450); RED CELL DISTRIBUTION WIDTH 14.4 % (11.6-13.7); WHITE BLOOD COUNT (AUTO) 9.1 K/uL (4.8-10.8)
[2021-09-07 14:10] LABS: ALBUMIN 2.4 g/dL (3.4-5.0); ANION GAP 11.6 (8-16); ASPARTATE AMINOTRANSFERASE 30 U/L (15-37); CARBON DIOXIDE 28.1 mmol/L (21-32); CHLORIDE 105 mmol/L (98-107); CREATININE 0.9 mg/dL (0.6-1.3); GLUCOSE 129 mg/dL (74-106); POTASSIUM 3.7 mmol/L (3.5-5.1); SODIUM SERUM 141 mmol/L (136-145); TOTAL BILIRUBIN 0.5 mg/dL (0.0-1.0); UREA NITROGEN, BLOOD 15 mg/dL (7-18)
--- NOTE | 2021-09-07 14:20 | NUR ---
OBTAINED ORDER FROM DR. MAXWELL FOR HOSPICE ORDER. SSD AWARE. PT ASLEEP JUST CHANGE AND KEEP SKIN DRY AND CLEAN.
[2021-09-07 16:00] VITALS: BP 157/89
--- NOTE | 2021-09-07 16:30 | NUR ---
PT ASLEEP NO DISTRESS NOTED. DIAPER CHANGE AND PROVIDED SKIN CARE.
--- NOTE | 2021-09-07 18:49 | NUR ---
PT ON BED ASLEEP NOT ON ANY DISCOMFORT. STILL ON WRIST RESTRAIN WITH GOOD CIRCULATION. NO INJURY NOTED ON SKIN. IV INFUSING AT 70CC/HOUR.
--- NOTE | 2021-09-07 19:23 | NUR ---
ENDORSE TO FERMENTER HELPER NURSE FOR CONTINUITY OF CARE.
--- NOTE | 2021-09-07 19:25 | NUR ---
RECEIVED PATIENT REPORT FROM AM SHIFT NURSE FOR CONTINUITY OF CARE. PATIENT IN BED RESTING COMFORTABLY WITH VISIBLE CHEST RISING AND FALLING. NO SOB NOTED. ALL SAFETY MEASURES IN PLACE. CALL LIGHT WITHIN REACH. WILL CONTINUE WITH CURRENT PLAN OF CARE.
--- NOTE | 2021-09-07 22:02 | NUR ---
CHECKED ON PATIENT. SLEEPING WITH VISIBLE CHEST RISING AND FALLING. CALL LIGHT WITHIN REACH. WILL CONTINUE TO MONITOR.
--- NOTE | 2021-09-08 00:55 | NUR ---
ROUNDED ON PATIENT. SLEEPING WELL. BREATHING EVEN AND UNLABORED WITH NO SOB NOTED. CALL LIGHT WITHIN REACH. WILL CONTINUE TO MONITOR.
--- NOTE | 2021-09-08 03:06 | NUR ---
PATIENT ASLEEP. BREATHING EVEN AND UNLABORED WITH NO SOB NOTED. CALL LIGHT WITHIN REACH. WILL CONTINUE TO MONITOR.
[2021-09-08 04:00] VITALS: BP 147/87
[2021-09-08] MEDS: DEXT 5% / NACL 0.45% 1,000 ML IV SCH (05:16)
--- NOTE | 2021-09-08 05:36 | NUR ---
CHECKED ON PATIENT. PATIENT ASLEEP. BREATHING EVEN AND UNLABORED WITH NO SOB NOTED. CALL LIGHT WITHIN REACH. WILL CONTINUE TO MONITOR.
--- NOTE | 2021-09-08 07:08 | NUR ---
ENDORSED PATIENT REPORT TO AM SHIFT NURSE FOR CONTINUITY OF CARE. PATIENT IS STABLE.
--- NOTE | 2021-09-08 07:09 | NUR ---
RECEIVED ENDORSEMENT FROM WEATHERIZATION CREW LEADER NURSE FOR CONTINUITY OF CARE.
[2021-09-08 07:34] LABS: BASOPHILS % (AUTO) 0.3 % (0.0-2.0); EOSINOPHILS # (AUTO) 0.2 K/uL (0-0.4); EOSINOPHILS % (AUTO) 2.3 % (0.0-4.0); HEMATOCRIT 38.9 % (36-48); LYMPHOCYTES # (AUTO) 1.2 K/uL (2.5-16.5); LYMPHOCYTES % (AUTO) 11.9 % (20.5-51.1); MEAN CORPUSCULAR HEMOGLOBIN 30 pg (27-31); MEAN CORPUSCULAR HGB CONC 34 g/dL (33-37); MEAN CORPUSCULAR VOLUME 89.3 fL (80-94); MONOCYTES # (AUTO) 0.8 K/uL (0.8-1.0); MONOCYTES % (AUTO) 8.3 % (1.7-9.3); NEUTROPHILS # (AUTO) 7.5 K/uL (1.8-7.7); NEUTROPHILS % (AUTO) 77.2 % (42.2-75.2); PLATELET COUNT (AUTO) 232 K/uL (140-450); RED BLOOD CELL COUNT(AUTO) 4.35 MIL/uL (4.20-5.40); RED CELL DISTRIBUTION WIDTH 14.4 % (11.6-13.7); WHITE BLOOD COUNT (AUTO) 9.7 K/uL (4.8-10.8)
[2021-09-08 07:46] LABS: ALBUMIN 2.4 g/dL (3.4-5.0); ANION GAP 12.8 (8-16); ASPARTATE AMINOTRANSFERASE 29 U/L (15-37); CARBON DIOXIDE 28.8 mmol/L (21-32); CHLORIDE 104 mmol/L (98-107); CREATININE 0.9 mg/dL (0.6-1.3); GLUCOSE 124 mg/dL (74-106); POTASSIUM 3.6 mmol/L (3.5-5.1); SODIUM SERUM 142 mmol/L (136-145); TOTAL BILIRUBIN 0.7 mg/dL (0.0-1.0); UREA NITROGEN, BLOOD 15 mg/dL (7-18)
--- NOTE | 2021-09-08 07:52 | NUR ---
PT AWAKE IV ON RIGHT WRIST BUT PT TRYING TO PULL IT EVEN WITH EXPLANATION AND ENCOURAGEMENT NOT TO DO SO. MONITOR CLOSELY.
--- NOTE | 2021-09-08 07:54 | NUR ---
INFORM DR. MAXWELL THAT SOFT WRIST RESTRAIN ORDER AND IF WE CAN RENEW IT.
--- NOTE | 2021-09-08 08:00 | NUR ---
Patient's Plan of Care was discussed and reviewed with FORENSIC DOCUMENT EXAMINER: LOLA BOWLES
--- NOTE | 2021-09-08 08:06 | NUR ---
DR. MAXWELL ORDER TO RENEW SOFT WRIST RESTRAIN.
[2021-09-08] MEDS: PANTOPRAZOLE 40 MG INJ VIAL IVP SCH (09:11)
--- NOTE | 2021-09-08 10:00 | NUR ---
PT ON BED ASLEEP RELEASE SOFT RESTRAINT FOR FEW MINUTE AND CHECK SKIN FOR INTEGRITY NO INJURY NOTED. ALL SAFETY MEASURE IN PLACE.
[2021-09-08 12:00] VITALS: BP 131/82
[2021-09-08] MEDS: HYDRAGUARD CREAM TP SCH (12:09)
--- NOTE | 2021-09-08 15:00 | NUR ---
RECEIVED CALLED FOR PT GOING TO BE DISCHARGE TO [facility] FOR FOLLOW UP BY [facility]. KELBY SAID I DON'T HAVE TO GIVE REPORT TO [facility] BECAUSE SHE WILL GIVE REPORT.
[2021-09-08 16:58] VITALS: BP 131/82
--- NOTE | 2021-09-08 17:32 | NUR ---
PT REMOVED IV SITE WITH CATHETER INTACT AND NAME BAND REMOVE.PT ALERT ABLE TO RESPONDS VERBALLY GROUND CREW SUPERVISOR BY [facility] DISCHARGE POCKET GIVEN TO STAFF OF [facility].CALLED [facility] NURSE TO INFORM THAT PT LEFT.
== END 2021-09-08 17:30 | disposition hospice, inpatient (51) | DRG 389 ==
LOC: MED 13:27 → MTU 21:51
PROVIDERS: ADMIT Internal Medicine Cardiovascular Disease; ATTEND Internal Medicine Cardiovascular Disease
PROC: 0DH63UZ Insertion of Feeding Device into Stomach, Percutaneous Approach (ICD-10-PCS; principal; 2021-08-31 10:30)
DX: K56.609 Unspecified intestinal obstruction, unspecified as to partial versus complete obstruction (principal); K31.1 Adult hypertrophic pyloric stenosis; M48.54XA Collapsed vertebra, not elsewhere classified, thoracic region, initial encounter for fracture; F03.91 Unspecified dementia, unspecified severity, with behavioral disturbance; E87.0 Hyperosmolality and hypernatremia; Z43.1 Encounter for attention to gastrostomy; K31.9 Disease of stomach and duodenum, unspecified; K86.9 Disease of pancreas, unspecified; K80.20 Calculus of gallbladder without cholecystitis without obstruction; E83.52 Hypercalcemia; E87.5 Hyperkalemia; D72.829 Elevated white blood cell count, unspecified; E78.5 Hyperlipidemia, unspecified; R13.10 Dysphagia, unspecified; F20.9 Schizophrenia, unspecified; G89.4 Chronic pain syndrome; D72.819 Decreased white blood cell count, unspecified; Z20.822 Contact with and (suspected) exposure to COVID-19; R73.9 Hyperglycemia, unspecified; R22.9 Localized swelling, mass and lump, unspecified; M85.80 Other specified disorders of bone density and structure, unspecified site; I25.10 Atherosclerotic heart disease of native coronary artery without angina pectoris; M47.819 Spondylosis without myelopathy or radiculopathy, site unspecified; N18.9 Chronic kidney disease, unspecified; E88.09 Other disorders of plasma-protein metabolism, not elsewhere classified; I12.9 Hypertensive chronic kidney disease with stage 1 through stage 4 chronic kidney disease, or unspecified chronic kidney disease; Z78.1 Physical restraint status
CPT/HCPCS: 36415; 71045; 71250; 80048; 80053; 80076; 82948; 83605; 83690; 84484; 85025; 85651; 86140; 93005; 99285; C9113; J0360; J2060; J2270; J2543; J2704; J3010; J3480; J7060; J7120; Q0092; Q0162